=== PATIENT | female | born 1950 | race Caucasian/White ===

== ENCOUNTER 2018-07-03 14:30 | Outpatient (RCR) | payer MEDICARE, MEDICAID, SELFPAY ==
--- NOTE | 2018-05-19 14:18 | HMH.PTOPWND ---
Rehab Outpt Wound Evaluation Rehab OP Wound Evaluation Start: 05/19/18 14:05 Freq: Status: Active Protocol: Document 05/19/18 14:11 MADDIE (Rec: 05/19/18 14:18 PHORNE [id number]) Electronically Signed By Yefri Davis, PT 05/19/18 14:11 Subjective/History History History Pt is 67 yo white female who presents with several months of increased left LE edema and new onset left dorsal foot wound x ~ 1 wk per her report. She is wheelchair bound due to right AKA secondary to hx of PAD, DM with significant neuropathy, and osteomyelitis. SHe reports no c/o pain in the left LE today and swelling is at its usual level. She also has hx of CAD. Wound Eval Wound Left Dorsal Foot Wound Type Skin Tear Is This a Chronic Wound No Wound Length (cm) 0.6 Wound Width (cm) 1.4 Wound Bed Appearance Beefy Red Percentage Granulated (%) 100 Wound Margins Description Well Defined Surrounding Tissue Appearance [place] Edema Type Pitting Edema Degree 3+ Query Text:1+ Trace, Barely Detectable, Rebound 15-30 seconds 2+ Moderate, Slight Indentation, Rebound 10-20 seconds 3+ Deep, Deeper Indentation, Rebound > 30 seconds 4+ Very Deep, Rebound > 60 seconds Edema Appearance Shiny Puffy Drainage Description Serous Drainage Amount Small Primary Dressing Composite Lymphedema Eval Classification of Lymphedema Secondary Lymphedema Yes Stemmer's sign Stemmer's Sign no Stage of Lymphedema Lymphedema stages Stage I (Pitting edema, reduces w/ elevation, no fibrosis) Skin Changes Dry Skin Yes Taut, Shiny Skin Yes Redness Yes Wounds Yes Discoloration of Skin Yes Affected Extremities Areas Affected by Lymphedema/Edema Left Lower Extremity Manual Lymphatic Drainage Treatment Area MLD Treatment Area Left Lower Extremity Wound Problems/Impairments Impairments Problems/Impairmments Impaired Transfers Impaired Walking Impaired Standing Increased Edema
== END 2018-07-03 14:31 | disposition home or self-care (01) ==
LOC: PT 14:30
PROVIDERS: PCP Internal Medicine Adolescent Medicine; Visit Provider Internal Medicine Adolescent Medicine
DX: I89.0 Lymphedema, not elsewhere classified (principal)
CPT/HCPCS: 97140; 97162; 97760

== ENCOUNTER → 2019-04-29 10:26 | Outpatient (CLI) | payer MEDICARE, MEDICAID, SELFPAY ==
[2019-04-29 12:50] LABS: Anion Gap 15.2 mEq/L (5-15); Blood Urea Nitrogen 37 mg/dL (7-18); Calcium 8.3 mg/dL (8.5-10.1); Carbon Dioxide 24 mmol/L (21.0-32.0); Chloride 111 mmol/L (98-107); Creatinine,Serum 1.86 mg/dL (0.55-1.02); Estimated Glomerular Filt Rate 27 ml/min (>60); GFR (African American) 33 ML/MIN (>60); Glucose 100 mg/dL (74-106); Potassium 4.2 mmoL/L (3.5-5.1); Sodium 146 mmol/L (136-145)
== END ==
PROVIDERS: Visit Provider Internal Medicine Adolescent Medicine
DX: N18.9 Chronic kidney disease, unspecified (principal)
CPT/HCPCS: 36415; 80048

== ENCOUNTER → 2019-06-03 06:54 | Outpatient (CLI) | payer MEDICARE, MEDICAID, SELFPAY ==
--- NOTE | 2019-06-03 06:56 | NM_ITS ---
CARDIOLITE SPECT MYOCARDIAL PERFUSION LEXISCAN, REST AND STRESS: History: Coronary disease, obesity, hypertension, diabetes, hyperlipidemia, family history Procedure: Patient received a 0.4 mg of intravenous Lexiscan, resting heart rate was 54 bpm resting blood pressure 160/50, with Lexiscan maximum heart rate achieved was 70 beats prominent which is less than 85% of the maximum predicted heart rate and a blood pressure was 166/52. Lexiscan patient complained of shortness of breath Electrocardiogram: Resting electrocardiogram showed sinus bradycardia left bundle-branch block premature ventricular complex, with Lexiscan additional millimeters ST segment depression noted from the baseline EKG. The EKG portion of the Lexiscan Myoview is nondiagnostic due to baseline abnormal EKG. Cardiac stress and resting SPECT images: Cardiac stress and the suspect images were obtained using technetium 99 Myoview 32.6 mCi at stress and 10.2 mCi at rest. Gated SPECT further analysis of segmental wall motion and calculation of the ejection fraction also done. Cardiac stress and resting SPECT images show decreased tracer activity in the anteroseptal wall which improves on the resting images suggestive of reversible ischemia, computer derived ejection fraction is 44% with moderate septal wall hypokinesis. Right ventricle is normal size and contractility. Conclusion: 1. The EKG portion of the Lexiscan Myoview is nondiagnostic. 2. Scintigraphic evidence of reversible ischemia involving the anteroseptal and septal wall, there are ejection fraction 44% segmental wall motion abnormality described above, right ventricle is normal size and contractility. 3. Abnormal Lexiscan Myoview study.
--- NOTE | 2019-06-03 09:02 | HMH.ITSHM ---
Current Home Medications as stated by this patient Lillian Echols or sales solutions representative. []TRAMADOL PRAVASTATIN PANTOPRAZOLE NITRO NAPROXEN NALDEMEDINE MULTIVITAMIN METODOPRAMIDE LORATADINE LINCLOTIDE LEVOTHYROXINE ISOSORBIDE INSULIN GABAPENTIN BISOPROLOL ASA AMLODIPINE ALBUTEROL
== END ==
PROVIDERS: PCP Internal Medicine Adolescent Medicine; Visit Provider Physician Assistant
DX: I25.10 Atherosclerotic heart disease of native coronary artery without angina pectoris; E11.8 Type 2 diabetes mellitus with unspecified complications; E66.9 Obesity, unspecified; E78.2 Mixed hyperlipidemia; I44.7 Left bundle-branch block, unspecified; I73.9 Peripheral vascular disease, unspecified; N18.3 Chronic kidney disease, stage 3 (moderate); R94.31 Abnormal electrocardiogram [ECG] [EKG]; Z89.611 Acquired absence of right leg above knee; Z99.3 Dependence on wheelchair; Z79.4 Long term (current) use of insulin
CPT/HCPCS: 78452; 93017; A9502; J2785

== ENCOUNTER 2019-06-13 11:20 | Inpatient (IN) ==
--- NOTE | 2019-06-13 11:31 | Emergency Department Note ---
ED Disposition Clinical Impression: Pneumonia, CHF (congestive heart failure), Insulin dependent diabetes mellitus Disposition: Admitted As Inpatient Condition on Discharge: Fair Referrals: Ej Singh MD [Primary Care Provider] - Time of Disposition: 15:17 - Critical Care Critical Care Time: No Attestation: On , the high probability of a clinically significant, sudden or life threatening deterioration of the following system(s) required my full and direct attention, intervention and personal management. The time I documented below is in addition to time spent performing reported procedures but includes the following listed in this critical care notation. Medical Decision Making - Medical Records Medical records reviewed: Yes: I reviewed the patient's medical records. - Torin Inquiry Pt receiving controlled substance: No Torin was queried for this patient: No Vital Signs: 06/13/19 11:21 06/13/19 11:37 06/13/19 11:40 Temperature 98.8 F Temperature Source Oral Pulse Rate 128 H Pulse Rate [Left Radial] 116 H 130 H Respiratory Rate 22 Blood Pressure [Right Arm] 191/105 H 159/110 H Blood Pressure Mean [Right Arm] 133 126 Blood Pressure Source [Right Arm] Automatic Cuff Blood Pressure Position [Right Arm] Sitting Sitting 02 Sat by Pulse Oximetry 87 L 98 Oxygen Delivery Method Room Air Room Air Oxygen Flow Rate (LPM) 06/13/19 12:04 06/13/19 12:30 06/13/19 13:00 Temperature Temperature Source Pulse Rate Pulse Rate [Left Radial] 98 H 95 H 116 H Respiratory Rate Blood Pressure [Right Arm] 125/100 H 155/65 H 133/78 Blood Pressure Mean [Right Arm] 108 95 96 Blood Pressure Source [Right Arm] Automatic Cuff Automatic Cuff Blood Pressure Position [Right Arm] Sitting Supine Supine 02 Sat by Pulse Oximetry 99 100 98 Oxygen Delivery Method Nasal Cannula Nasal Cannula Room Air Oxygen Flow Rate (LPM) 2 2 06/13/19 13:09 06/13/19 14:00 06/13/19 14:30 Temperature 98.3 F Temperature Source Oral Pulse Rate Pulse Rate [Left Radial] 111 H 107 H 125 H Respiratory Rate 18 Blood Pressure [Right Arm] 138/49 L 143/87 H Blood Pressure Mean [Right Arm] 78 105 Blood Pressure Source [Right Arm] Automatic Cuff Automatic Cuff Blood Pressure Position [Right Arm] Sitting Supine 02 Sat by Pulse Oximetry 96 99 Oxygen Delivery Method Nasal Cannula Nasal Cannula Oxygen Flow Rate (LPM) 2 2 06/13/19 15:00 Temperature Temperature Source Pulse Rate Pulse Rate [Left Radial] 92 H Respiratory Rate Blood Pressure [Right Arm] 129/84 Blood Pressure Mean [Right Arm] 99 Blood Pressure Source [Right Arm] Automatic Cuff Blood Pressure Position [Right Arm] Supine 02 Sat by Pulse Oximetry 98 Oxygen Delivery Method Nasal Cannula Oxygen Flow Rate (LPM) 2 - Lab Data Lab results reviewed: Yes: I reviewed the patient's lab results. Lab Results 06/13/19 11:31: WBC 15.9 H, RBC 3.80 L, Hgb 10.0 L, Hct 31.5 L, MCV 82.9, MCH 26.3 L, MCHC 31.8, RDW 14.2, Plt Count 392, MPV 7.2 L, Neut % (Auto) 68.6, Lymph % (Auto) 17.9, [place] % (Auto) 7.0, Eos % (Auto) 6.0, Baso % (Auto) 0.5, Neut # (Auto) 10.9 H, Lymph # (Auto) 2.8, [place] # (Auto) 1.1 H, Eos # (Auto) 1.0 H, Baso # (Auto) 0.1, Total Counted 100, Neutrophils % (Manual) 70, Band Neutrophils % 1.0, Lymphocytes % (Manual) 14, Atypical Lymphs % 4.0, Monocytes % (Manual) 4, Eosinophils % (Manual) 7 H, Platelet Estimate Normal, RBC Morphology Normal 06/13/19 11:31: Sodium 141, Potassium 4.1, Chloride 107, Carbon Dioxide 23, Anion Gap 11.5, BUN 44 H, Creatinine 2.18 H, Estimated Creat Clear 45, Estimated GFR 22 L, Est GFR ( Amer) 27 L, Glucose 217 H, Calcium 8.9, Troponin I < 0.02 06/13/19 11:31: B-Natriuretic Peptide 1930 H 06/13/19 12:40: Urine Color Yellow, Urine Appearance Clear, Urine pH 6.0, Ur Specific [place] 1.020, Urine Protein 3+, Urine Glucose (UA) 1+, Urine Ketones Negative, Urine Blood 2+, Urine Nitrate Negative, Urine Bilirubin Negative, Urine Urobilinogen 0.2, Ur Leukocyte Esterase Negative, Urine RBC 5-10, Urine WBC 5-10, Ur Squamous Epith Cells Occasional, Urine Bacteria 3+ Result diagrams: 06/13/19 11:31 06/13/19 11:31 Orders (Tests/Meds): ED MEDICATIONS Discontinued Medications Generic Name Dose Route Start Last Admin Trade Name Leigha PRN Reason Stop Dose Admin Aspirin 243 mg 06/13/19 11:36 06/13/19 11:38 Aspirin 81mg Enteric Coated Tablet PO 06/13/19 11:37 243 mg ONCE ONE Administration Furosemide 20 mg 06/13/19 11:30 06/13/19 12:29 Lasix 20mg/2ml Vial IV 06/13/19 11:31 20 mg ONCE ONE Administration Nitroglycerin 1 gm 06/13/19 11:30 06/13/19 11:38 Nitroglycerin 1 Inch Oint Udp TD 06/13/19 11:31 1 gm ONCE ONE Administration ORDERS Category Date Time Status Lactic Acid Stat Lab 06/13/19 15:03 Received Blood Culture Stat Micro 06/13/19 15:03 Received Urine Culture Stat Micro 06/13/19 12:40 Received General Adult HPI - General Chief complaint: Chest Pain Stated complaint: chest pain Time Seen by Provider: 06/13/19 11:30 Mode of Arrival: Wheelchair Source of Information: Patient, Relative Limitations: Physical Limitations Description of Symptoms (Recalled from ER Triage Doc. by RN): to ed per pvt car with c/o pressure type chest pain with sob starting 2 days ago. pt denies any fever, cough, nausea, vomiting, radiation of pain or diaphoresis. pt states took 1 81mg as[employer]. swelling noted lt arm and lt leg. pt aka rt lower. - History of Present Illness HPI narrative: main complaint is dyspnea and palpitations. No true pain. 3+ pitting edema - Related Data Home Medications Medication Instructions Recorded Confirmed albuterol sulfate HFA 90 2 puff INHALATION Q6H PRN 04/13/18 06/13/19 mcg/actuation aerosol inhaler bisoprolol 10 1 tab PO DAILY tab 04/13/18 06/13/19 mg-hydrochlorothiazide 6.25 mg tablet insulin NPH-regular human 100 60 unit SUB-Q QPM 04/13/18 06/13/19 unit/mL (70-30) subcutaneous cartridge insulin lispro (U-100) 100 unit/mL 25 unit SUB-Q QAM ml 04/13/18 06/13/19 subcutaneous solution isosorbide mononitrate ER 60 mg 60 mg PO QAM 04/13/18 06/13/19 tablet,extended release 24 hr levothyroxine 100 mcg tablet 100 mcg PO DAILY tab 04/13/18 06/13/19 linaclotide 72 mcg capsule 72 mcg PO .3 times a week cap 04/13/18 06/13/19 lisinopril 10 mg tablet 10 mg PO DAILY tab 04/13/18 06/13/19 loratadine 10 mg tablet 10 mg PO DAILY tab 04/13/18 06/13/19 metoclopramide 10 mg tablet 10 mg PO Q6H 04/13/18 06/13/19 naproxen 500 mg tablet 500 mg PO BID 04/13/18 06/13/19 nitroglycerin 0.4 mg sublingual 0.4 mg SUBLINGUAL Q5M PRN 04/13/18 06/13/19 tablet pantoprazole 40 mg tablet,delayed 40 mg PO DAILY tab 04/13/18 06/13/19 release pravastatin 40 mg tablet 40 mg PO QHS 04/13/18 06/13/19 tramadol 50 mg tablet 50 mg PO Q6H 04/13/18 06/13/19 aspirin 81 mg tablet,delayed 81 mg PO DAILY 10/27/18 06/13/19 release gabapentin 300 mg capsule 300 mg PO DAILY cap 10/27/18 06/13/19 ibuprofen 200 mg tablet 400 mg PO QID PRN tab 10/27/18 06/13/19 multivitamin tablet 1 tab PO DAILY 10/27/18 06/13/19 naldemedine 0.2 mg tablet 0.2 mg PO DAILY 10/27/18 06/13/19 Amlodipine Besylate [Amlodipine 10 mg PO DAILY 06/13/19 06/13/19 10mg Tab] Allergies Allergy/AdvReac Type Severity Reaction Status Date / Time Iodinated Contrast Media - Allergy Severe S-SWELLS-OR Verified 06/08/19 14:46 Oral and AL/THROAT [Iodinated Contrast Media - IV Dye] Penicillins Allergy Severe I-HIVES Verified 06/08/19 14:46 clindamycin Allergy Intermediate "SHUTS Verified 06/08/19 14:46 DOWN KIDNEYS" [facility] History - Hepatitis A Screen Drug use history?: No High risk sexual behaviors?: No History of sexually transmitted infection?: No Currently employed?: No Childcare worker?: No Do you have indoor plumbing?: Yes Do you have electricity?: Yes Attestation statement:: This patient has been screened for Hepatitis A risk factors. I have reviewed the patient's past medical history: Yes Medical History: Reports:: Coronary Artery Disease, Diabetes Mellitus Type 2, Hyperlipidemia, Hypertension, Peripheral Artery Disease, Renal Disease Denies:: Cancer, Diabetes Mellitus Type 1, Internal Pacemaker, MRSA, Seizures Other Surgeries: Yes: Hysterectomy-Total. No: Pacemaker Amputation: Yes Fractures: No - Social History Smoking Status: Former smoker Alcohol Intake: never Substance Use Type: denies use Occupational Status: retired Housing: house Household Members: spouse, family Comment: CHF ROS Obtained: Yes All systems reviewed & no additional complaints - Constitutional Constitutional: Denies chills, Reports weakness - Cardiovascular Cardiovascular: Denies chest pain, Reports dyspnea on exertion, Reports shortness of breath when lying down, Reports palpitations, Reports pedal edema - Respiratory Respiratory: Yes chest congestion, Yes dyspnea, Yes dyspnea on exertion - Gastrointestinal Gastrointestingal: Denies: abdominal pain - Musculoskeletal Musculoskeletal: Denies joint pain, Denies joint stiffness, Denies joint swelling - Integumentary/Breasts Skin/Breast: Denies rash, Denies skin pain, Denies skin ulcer, Denies sores, Reports skin swelling - Neurologic Neurologic: Denies headache(s), Denies memory loss, Denies tingling/numbness/burning sensations, Denies sensory deficit, Denies syncope - Hematologic/Lymphatic Henatologic/Lymphatic: Denies easy bleeding, Denies easy bruising Physical Exam - General General appearance: alert, in distress - Head Head exam: atraumatic, normocephalic, normal inspection - Eye Eye exam: Present: normal appearance, PERRL, EOMI - ENT ENT exam: Present: normal exam, normal oropharynx, mucous membranes moist, TM's normal bilaterally, normal external ear exam - Neck Neck exam: Present: normal inspection - Respiratory Respiratory exam: Present: respiratory distress (mild), wheezes, other (scattered rhonchi). Absent: normal lung sounds bilaterally - Cardiovascular Cardiovascular exam: Present: tachycardia, irregular rhythm - Abdominal Exam Abdominal exam: Present: soft. Absent: distention, tenderness - Extremities Exam Extremities exam: Present: pedal edema - Neurological Exam Neurological exam: Present: alert, oriented X3, CN II-XII intact, motor sensory deficit - Psychiatric Psychiatric exam: Present: normal affect - Skin Skin exam: Present: warm, dry, intact, normal color
[2019-06-13 11:40] LABS: Basophils # 0.1 K/mm3 (0-0.2); Basophils % 0.5 % (0.1-2.0); Hematocrit 31.5 % (37.0-47.0); Lymphocytes # 2.8 K/mm3 (0.7-4.5); Lymphocytes % 17.9 % (10-50); Mean Corpuscular HGB Conc 31.8 g/dL (31.8-35.4); Mean Corpuscular Volume 82.9 fl (81-99); Mean Platelet Volume 7.2 fl (7.4-10.4); Monocytes # 1.1 K/mm3 (0.1-1.0); Neutrophils # 10.9 K/mm3 (1.8-7.8); Neutrophils % 68.6 % (37.0-80.0); Platelet Count 392 K/mm3 (142-424); Red Cell Distribution Width 14.2 % (11.5-17.5); White Blood Count 15.9 K/mm3 (4.8-10.8)
[2019-06-13 11:49] LABS: Anion Gap 11.5 mEq/L (5-15); Blood Urea Nitrogen 44 mg/dL (7-18); Carbon Dioxide 23 mmol/L (21.0-32.0); Chloride 107 mmol/L (98-107); Sodium 141 mmol/L (136-145)
[2019-06-13 11:50] LABS: Calcium 8.9 mg/dL (8.5-10.1); Glucose 217 mg/dL (74-106)
[2019-06-13 11:53] LABS: Eosinophils % 7 % (0-3); Lymphocytes % 14 % (10-50); Monocytes % 4 % (2-9); Neutrophils % 70 % (42-76); RBC Morphology Normal; Total Cells Counted 100
[2019-06-13 13:16] LABS: Appearance,Urine CLEAR (Clear); Bilirubin,Urine Negative (Negative); Blood, Urine 2+ (Negative); Color,Urine YELLOW (Yellow); Glucose,Urine (UA) 1+ (Negative); Ketones,Urine Negative (Negative); Leukocyte Esterase,Urine Negative (Negative); Microscopic, Urine URINE MICROSCOPIC (MICROSCOPIC); Protein,Urine 3+ (Negative); Urobilinogen,Urine 0.2 EU/dl (0.2)
[2019-06-13 13:22] LABS: Bacteria,Urine 3+ /lpf; Squamous Epithelial Cell,Urine Occasional #/hpf (0-5)
--- NOTE | 2019-06-14 08:42 | History & Physical Report ---
*Admission Date: 06/13/19 *Chief complaint: Chest pain/shortness of air *History of present illness: 68-year-old white female with long history of diabetes-insulin requiring, history of osteomyelitis/leg cellulitis with right AKA, history of diastolic CHF, who came to the emergency department with chest pain, dyspnea and shortness of air. In the emergency department infiltrate noted on chest x-ray but very suspicious in character, CT scan confirmed that this appears to be a significant right upper lobe pneumonic infiltrate, and given her chest pain and shortness of air and possible CHF exacerbation when she was admitted to the hospital. This morning she states she feels somewhat better. [facility] History I have reviewed the patient's past medical history: Yes Medical History: Reports:: Congestive Heart Failure, Coronary Artery Disease, D iabetes Mellitus Type 2, Hyperlipidemia, Hypertension, Peripheral Artery Disease, Renal Disease Denies:: Cancer, Diabetes Mellitus Type 1, Internal Pacemaker, MRSA, Seizures *Have you ever received a pneumonia vaccine?: Yes *Have you received a flu vaccine this season?: Yes Other Medical History: Reports: Arthritis Laterality Cases: Right: Other Other Surgeries: Yes: Cholecystectomy, Hysterectomy-Total. No: Pacemaker Amputation: Yes Fractures: No - *Social History Educational Level: Attended College Smoking Status: Former smoker Alcohol Intake: current Alcohol Intake Frequency:: holidays/special occasions only Substance Use Type: denies use *Occupational Status:: retired Housing: house Household Members: spouse, family, children *Travel in the last 8 weeks: None - Psychiatric History Expresses thoughts of harming self/others: None Family Hx:: No significant family history Review of Systems - Review of Systems Review of systems:: pertinent systems reviewed and negative unless documented below Respiratory symptoms noted above. No sputum production or cough. Shortness of air is exertional and at rest. Chest pain negative for palpitations. - *Neurologic Reports weakness, Denies headache(s), Denies memory loss, Denies tingling/numbness/burning sensations, Denies sensory deficit, Denies fainting Meds Home Medications Medication Instructions Recorded Confirmed Type albuterol sulfate HFA 90 2 puff INHALATION Q6H PRN 04/13/18 06/13/19 History mcg/actuation aerosol inhaler bisoprolol 10 1 tab PO BID tab 04/13/18 06/13/19 History mg-hydrochlorothiazide 6.25 mg tablet insulin NPH-regular human 100 1 unit SUB-Q QPM 04/13/18 06/13/19 History unit/mL (70-30) subcutaneous cartridge insulin lispro (U-100) 100 unit/mL 20 unit SUB-Q BID ml 04/13/18 06/13/19 History subcutaneous solution isosorbide mononitrate ER 60 mg 60 mg PO QAM 04/13/18 06/13/19 History tablet,extended release 24 hr levothyroxine 100 mcg tablet 100 mcg PO DAILY tab 04/13/18 06/13/19 History linaclotide 72 mcg capsule 145 mcg PO DAILY cap 04/13/18 06/13/19 History lisinopril 10 mg tablet 10 mg PO DAILY tab 04/13/18 06/13/19 History loratadine 10 mg tablet 10 mg PO DAILY tab 04/13/18 06/13/19 History metoclopramide 10 mg tablet 10 mg PO DAILY 04/13/18 06/13/19 History naproxen 500 mg tablet 500 mg PO HS 04/13/18 06/13/19 History nitroglycerin 0.4 mg sublingual 0.4 mg SUBLINGUAL Q5M PRN 04/13/18 06/13/19 History tablet pantoprazole 40 mg tablet,delayed 40 mg PO DAILY tab 04/13/18 06/13/19 History release pravastatin 40 mg tablet 40 mg PO QHS 04/13/18 06/13/19 History tramadol 50 mg tablet 100 mg PO HS 04/13/18 06/13/19 History aspirin 81 mg tablet,delayed 81 mg PO DAILY 10/27/18 06/13/19 History release gabapentin 300 mg capsule 300 mg PO DAILY cap 10/27/18 06/13/19 History ibuprofen 200 mg tablet 400 mg PO HS tab 10/27/18 06/13/19 History multivitamin tablet 1 tab PO DAILY 10/27/18 06/13/19 History naldemedine 0.2 mg tablet 0.2 mg PO DAILY 10/27/18 06/13/19 History Amlodipine Besylate [Amlodipine 10 mg PO DAILY 06/13/19 06/13/19 History 10mg Tab] Lisinopril [Lisinopril 10mg Tab] 10 mg PO DAILY 06/13/19 06/13/19 History hydroCHLOROthiazide 25 mg PO DAILY 06/13/19 06/13/19 History [Hydrochlorothiazide 12.5mg Tab] Allergies Allergy/AdvReac Type Severity Reaction Status Date / Time Iodinated Contrast Media - Allergy Severe S-SWELLS-OR Verified 06/08/19 14:46 Oral and AL/THROAT [Iodinated Contrast Media - IV Dye] Penicillins Allergy Severe I-HIVES Verified 06/08/19 14:46 clindamycin Allergy Intermediate "SHUTS Verified 06/08/19 14:46 DOWN KIDNEYS" Exam Vital signs and Labs for Last 24 Hours: Temp Pulse Resp BP Pulse Ox 98.6 F 79 20 180/74 H 96 06/14/19 06:35 06/14/19 06:35 06/14/19 06:35 06/14/19 06:35 06/14/19 08:00 Laboratory Results - last 24 hr 06/13/19 11:31: WBC 15.9 H, RBC 3.80 L, Hgb 10.0 L, Hct 31.5 L, MCV 82.9, MCH 26.3 L, MCHC 31.8, RDW 14.2, Plt Count 392, MPV 7.2 L, Neut % (Auto) 68.6, Lymph % (Auto) 17.9, [place] % (Auto) 7.0, Eos % (Auto) 6.0, Baso % (Auto) 0.5, Neut # (Auto) 10.9 H, Lymph # (Auto) 2.8, [place] # (Auto) 1.1 H, Eos # (Auto) 1.0 H, Baso # (Auto) 0.1, Total Counted 100, Neutrophils % (Manual) 70, Band Neutrophils % 1.0, Lymphocytes % (Manual) 14, Atypical Lymphs % 4.0, Monocytes % (Manual) 4, Eosinophils % (Manual) 7 H, Platelet Estimate Normal, RBC Morphology Normal 06/13/19 11:31: Sodium 141, Potassium 4.1, Chloride 107, Carbon Dioxide 23, Anion Gap 11.5, BUN 44 H, Creatinine 2.18 H, Estimated Creat Clear 45, Estimated GFR 22 L, Est GFR ( Amer) 27 L, Glucose 217 H, Calcium 8.9, Troponin I < 0.02 06/13/19 11:31: B-Natriuretic Peptide 1930 H 06/13/19 12:40: Urine Color Yellow, Urine Appearance Clear, Urine pH 6.0, Ur Specific [place] 1.020, Urine Protein 3+, Urine Glucose (UA) 1+, Urine Ketones Negative, Urine Blood 2+, Urine Nitrate Negative, Urine Bilirubin Negative, Urine Urobilinogen 0.2, Ur Leukocyte Esterase Negative, Urine RBC 5-10, Urine WBC 5-10, Ur Squamous Epith Cells Occasional, Urine Bacteria 3+ 06/13/19 15:03: Lactate 0.7 06/13/19 15:03: Troponin I < 0.02 06/13/19 18:45: Troponin I < 0.02 06/13/19 20:50: Troponin I < 0.02 06/13/19 21:38: POC Glucose 229 H 06/14/19 05:56: POC Glucose 208 H I & O for Last 24 hours: Intake & Output 06/11/19 06/12/19 06/13/19 06/14/19 11:59 11:59 11:59 11:59 Intake Total 1584 / 1584 Output Total 3600 / 3600 Balance -2015 / -2015 Weight 259 lb 225 lb 7 oz Narrative: Patient is pleasant, talkative. Heart rate on environmental monitoring technician in sinus bradycardia but with multiple PVCs. Lungs have rhonchi and crackles in the right base. Upper lobes are actually clear. Heart rate regular with occasional ectopic beats. Abdomen soft and nontender. Left ankle is edematous with 2+ pitting edema at her sock line. Right side stump looks clear. Neurologic exam nonfocal and her cranial nerves and upper extremities. Assessment and Plan (1) Paroxysmal atrial fibrillation Current visit: Yes Status: Acute Category: Medical Code(s): I48.0 - Paroxysmal atrial fibrillation One episode last night, before Cardizem that was ordered was given patient transition back in a sinus rhythm. Check echocardiogram today and watch carefully. (2) CHF (congestive heart failure) Current visit: Yes Status: Acute Category: Medical Code(s): I50.9 - Heart failure, unspecified Patient responded fairly well to diuresis. 1 more dose of Lasix today. Check echocardiogram. (3) Insulin dependent diabetes mellitus Current visit: Yes Status: Acute Category: Medical Code(s): E11.9 - Type 2 diabetes mellitus without complications; Z79.4 - FDC (current) use of insulin Continue current therapy. Complicates all aspects of her care (4) Pneumonia Current visit: Yes Status: Acute Category: Medical Code(s): J18.9 - Pneumonia, unspecified organism Continue antibiotics as ordered. Close observation (5) Obesity Current visit: No Status: Acute Qualifiers: Category: Medical Code(s): E66.9 - Obesity, unspecified Complicates all aspects of her care
[2019-06-14 09:13] LABS: Basophils # 0.2 K/mm3 (0-0.2); Basophils % 0.7 % (0.1-2.0); Eosinophils # 1.1 K/mm3 (0.0-0.4); Eosinophils % 4.5 % (0.1-12.0); Hematocrit 33.2 % (37.0-47.0); Hemoglobin 10.4 g/dL (12.2-16.2); Lymphocytes % 20.9 % (10-50); Mean Corpuscular HGB Conc 31.4 g/dL (31.8-35.4); Mean Corpuscular Volume 83.7 fl (81-99); Mean Platelet Volume 7.5 fl (7.4-10.4); Monocytes # 1.6 K/mm3 (0.1-1.0); Monocytes % 6.7 % (1.7-9.3); Neutrophils # 16.2 K/mm3 (1.8-7.8); Neutrophils % 67.2 % (37.0-80.0); Platelet Count 465 K/mm3 (142-424); Red Blood Count 3.97 M/mm3 (4.20-5.40); Red Cell Distribution Width 14.5 % (11.5-17.5); White Blood Count 24.1 K/mm3 (4.8-10.8)
--- NOTE | 2019-06-14 09:17 | Pharmacy Consult Notes ---
[facility] VTE Monitoring - Patient Demographics Admission date: 06/14/19 Report Date: 06/14/19 Time: 09:16 Allergies/Adverse Reactions: Patient Allergies Iodinated Contrast Media - Oral and [Iodinated Contrast Media - IV Dye] Allergy (Severe, Verified 06/08/19 14:46) [id number]/THROAT Penicillins Allergy (Severe, Verified 06/08/19 14:46) I-HIVES clindamycin Allergy (Intermediate, Verified 06/08/19 14:46) "SHUTS DOWN KIDNEYS" Height: 1.7 m Weight: 102.257 kg Patient Problems: Current Active Problems (Updated 06/14/19 @ 08:42 by Ej Singh MD) Pneumonia (Acute) CHF (congestive heart failure) (Acute) Insulin dependent diabetes mellitus (Acute) Paroxysmal atrial fibrillation (Acute) - VTE Risk Labs: VTE Related Lab Results Hgb 10.4 g/dL (12.2-16.2) L 06/14/19 08:55 Hct 33.2 % (37.0-47.0) L 06/14/19 08:55 Plt Count 465 K/mm3 (142-424) H 06/14/19 08:55 BUN 44 mg/dL (7-18) H 06/13/19 11:31 Creatinine 2.18 mg/dL (0.55-1.02) H 06/13/19 11:31 Estimated Creat Clear 45 mL/min (50-200) 06/13/19 11:31 Was VTE Risk Assessment Performed: Yes VTE Score: 7 VTE Risk Level: Moderate Risk Clinical Trial Participant: No - Prophylaxis VTE Prophylaxis Ordered?: Yes Types of VTE Prophylaxis: TEDS Knee High, Pharmacological Pharmacologic Type: Enoxaparin
[2019-06-14 09:24] LABS: Albumin Level 2.4 gm/dL (3.4-5.0); Albumin/Globulin Ratio 0.6 (1.1-1.8); Anion Gap 14.6 mEq/L (5-15); Bilirubin,Total 0.4 mg/dL (0.2-1.0); Calcium 8.9 mg/dL (8.5-10.1); Globulin 3.9 gm/dl (1.3-3.2); Total Protein,Serum 6.3 gm/dL (6.4-8.2)
[2019-06-14 09:41] LABS: Eosinophils % 5 % (0-3); Lymphocytes % 24 % (10-50); Monocytes % 5 % (2-9); Neutrophils % 66 % (42-76); RBC Morphology Normal; Total Cells Counted 100
--- NOTE | 2019-06-14 14:24 | Consult Report ---
History of Present Illness Consult date: 06/14/19 Requesting physician: Ej Singh Consult reason: shortness of breath Chief complaint: SOB and chest pain Additional Medical History:: 1. Coronary artery disease 2. Hypertension 3. Hyperlipidemia 4. Diabetes 5. Diastolic congestive heart failure 6. Chronic kidney disease 7. Peripheral arterial disease History of present illness: This is a 68-year-old white female who was admitted to the hospital with chest pain and shortness of breath. The patient states that she has been severely short of breath over the last several days. This is been associated with edema in her left leg. She states that she has been having a lot of pain with inspiration as well. She states that this is an aching pressure sensation in her chest that she only notices with breathing or deep breaths. She denies any fevers or chills. She denies any nausea, vomiting or diarrhea. Of note, the patient did have a left heart cath on last week. The patient had mild nonocclusive coronary artery disease at that time. Upon admission to the hospital here, the patient was found to have a right upper lobe pneumonia and is being treated by her primary care provider for this. She is also being treated for an exacerbation of her diastolic congestive heart failure. This afternoon she does report that she feels much better today than she did on admission. She states her shortness of breath is much better. She still complaining of edema in her left leg. She denies any chest pain or pressure today. [facility] History I have reviewed the patient's past medical history: Yes Medical History: Reports:: Congestive Heart Failure, Coronary Artery Disease, Diabetes Mellitus Type 2, Hyperlipidemia, Hypertension, Peripheral Artery Disease, Renal Disease Denies:: Cancer, Diabetes Mellitus Type 1, Internal Pacemaker, MRSA, Seizures *Have you ever received a pneumonia vaccine?: Yes *Have you received a flu vaccine this season?: Yes Other Medical History: Reports: Arthritis Laterality Cases: Right: Other Other Surgeries: Yes: Cholecystectomy, Hysterectomy-Total. No: Pacemaker Amputation: Yes Fractures: No - *Social History Educational Level: Attended College Smoking Status: Former smoker Alcohol Intake: current Alcohol Intake Frequency:: holidays/special occasions only Substance Use Type: denies use *Occupational Status:: retired Housing: house Household Members: spouse, family, children *Travel in the last 8 weeks: None - Psychiatric History Expresses thoughts of harming self/others: None Family Hx:: No significant family history Meds Home Medications Medication Instructions Recorded Confirmed Type albuterol sulfate HFA 90 2 puff INHALATION Q6H PRN 04/13/18 06/13/19 History mcg/actuation aerosol inhaler isosorbide mononitrate ER 60 mg 60 mg PO BID 04/13/18 06/14/19 History tablet,extended release 24 hr levothyroxine 100 mcg tablet 100 mcg PO DAILY tab 04/13/18 06/13/19 History loratadine 10 mg tablet 10 mg PO DAILY tab 04/13/18 06/13/19 History metoclopramide 10 mg tablet 10 mg PO ACHS 04/13/18 06/14/19 History naproxen 500 mg tablet 500 mg PO BID 04/13/18 06/14/19 History nitroglycerin 0.4 mg sublingual 0.4 mg SUBLINGUAL Q5M PRN 04/13/18 06/13/19 History tablet pantoprazole 40 mg tablet,delayed 40 mg PO DAILY tab 04/13/18 06/13/19 History release tramadol 50 mg tablet 100 mg PO Q4HP PRN 04/13/18 06/14/19 History aspirin 81 mg tablet,delayed 81 mg PO DAILY 10/27/18 06/13/19 History release gabapentin 300 mg capsule 300 mg PO HS cap 10/27/18 06/14/19 History ibuprofen 200 mg tablet 400 mg PO HS tab 10/27/18 06/13/19 History multivitamin tablet 1 tab PO DAILY 10/27/18 06/13/19 History Amlodipine Besylate [Amlodipine 10 mg PO DAILY 06/13/19 06/13/19 History 10mg Tab] Lisinopril [Lisinopril 10mg Tab] 10 mg PO DAILY 06/13/19 06/13/19 History Atorvastatin Calcium [Atorvastatin 40 mg PO HS 06/14/19 06/14/19 History 40mg Tab] Bisoprolol Fumarate [Bisoprolol 10 mg PO BID 06/14/19 06/14/19 History 10mg Tablet] Insulin NPH Hum/Reg Insulin Hm 5 unit SQ DAILY 06/14/19 06/14/19 History [Humulin 70/30 Kwikpen] Insulin NPH Hum/Reg Insulin Hm 5 unit SQ HS 06/14/19 06/14/19 History [Humulin 70/30 Kwikpen] Linaclotide [Linzess] 145 mcg PO DAILY 06/14/19 06/14/19 History Allergies Allergy/AdvReac Type Severity Reaction Status Date / Time Iodinated Contrast Media - Allergy Severe S-SWELLS-OR Verified 06/08/19 14:46 Oral and AL/THROAT [Iodinated Contrast Media - IV Dye] Penicillins Allergy Severe I-HIVES Verified 06/08/19 14:46 clindamycin Allergy Intermediate "SHUTS Verified 06/08/19 14:46 DOWN KIDNEYS" Review of Systems - Review of Systems Review of systems:: pertinent systems reviewed and negative unless documented below - *Cardiovascular Reports chest pain, Reports chest pain at rest, Reports chest pain with activity, Reports shortness of breath, Reports shortness of breath with activity, Reports leg swelling (Left lower extremity) - *Respiratory Reports cough, Reports shortness of breath, Reports shortness of breath with activity, Reports pain on inspiration - *Neurologic Reports weakness, Denies headache(s), Denies memory loss, Denies tingling/numbness/burning sensations, Denies sensory deficit, Denies fainting Exam Vital signs and Labs for Last 24 Hours: Temp Pulse Resp BP Pulse Ox 98.3 F 66 22 151/82 H 97 06/14/19 12:00 06/14/19 14:08 06/14/19 12:00 06/14/19 13:16 06/14/19 12:00 Laboratory Results - last 24 hr 06/13/19 15:03: Lactate 0.7 06/13/19 15:03: Troponin I < 0.02 06/13/19 18:45: Troponin I < 0.02 06/13/19 20:50: Troponin I < 0.02 06/13/19 21:38: POC Glucose 229 H 06/14/19 05:56: POC Glucose 208 H 06/14/19 08:55: WBC 24.1 H* D, RBC 3.97 L, Hgb 10.4 L, Hct 33.2 L, MCV 83.7, MCH 26.2 L, MCHC 31.4 L, RDW 14.5, Plt Count 465 H, MPV 7.5, Neut % (Auto) 67.2, Lymph % (Auto) 20.9, [place] % (Auto) 6.7, Eos % (Auto) 4.5, Baso % (Auto) 0.7, Neut # (Auto) 16.2 H, Lymph # (Auto) 5.0 H, [place] # (Auto) 1.6 H, Eos # (Auto) 1.1 H, Baso # (Auto) 0.2, Total Counted 100, Neutrophils % (Manual) 66, Lymphocytes % (Manual) 24, Monocytes % (Manual) 5, Eosinophils % (Manual) 5 H, Platelet Estimate Slight increase, RBC Morphology Normal 06/14/19 08:55: Sodium 143, Potassium 3.6, Chloride 108 H, Carbon Dioxide 24, Anion Gap 14.6, BUN 40 H, Creatinine 2.22 H, Estimated Creat Clear 39, Estimated GFR 22 L, Est GFR ( Amer) 26 L, Glucose 189 H, Calcium 8.9, Total Bilirubin 0.4, AST 19, ALT 25, Alkaline Phosphatase 76, Total Protein 6.3 L, Albumin 2.4 L, Globulin 3.9 H, Albumin/Globulin Ratio 0.6 L 06/14/19 08:55: Magnesium 1.7 06/14/19 11:18: POC Glucose 201 H I & O for Last 24 hours: Intake & Output 06/11/19 06/12/19 06/13/19 06/14/19 23:59 23:59 23:59 23:59 Intake Total 640 / 640 944 / 944 Output Total 850 / 850 3550 / 3550 Balance -210 / -210 -2606 / -2606 Weight 225 lb 7 oz 224 lb 8 oz Microbiology Reports for the Last 24 Hours: Microbiology 06/13/19 12:40 Urine,Catheterized Urine Culture - Preliminary NO GROWTH AFTER 24 HOURS Narrative: EKG #1 is atrial fibrillation with RVR and left bundle branch block. EKG #2 is sinus rhythm with left bundle branch block. - *Routine HEENT Exam Head: Present: normocephalic, atraumatic Eye: Present: EOMI, PERRL ENT: Present: mucous membranes moist - *Routine Neck Exam Present: supple, full ROM, normal carotid upstroke. Absent: JVD, carotid bruit, lymphadenopathy - *Routine Respiratory Exam Present: decreased breath sounds, rhonchi (Right upper lobe), wheezes (Right upper lobe) - *Routine Cardiovascular Exam Present: RRR, Normal S1, Normal S2. Absent: murmur - *Routine Abdominal Exam Present: soft, normoactive bowel sounds. Absent: tenderness - *Routine Extremities Exam Present: edema (2+ edema in the left lower extremity; she is a right [id number] amputee), full ROM, pulses intact (Left lower extremity pulses intact; she has a right [id number] amputee). Absent: cyanosis, clubbing - *Routine Skin Exam Present: intact, warm. Absent: erythema, rash - *Routine Neurological Exam Present: alert, oriented X3, CN II-XII intact. Absent: sensory deficit, motor deficit - Routine Psychiatric Exam Present: normal affect, normal thought process - Detailed Eye Exam Eyelids: Left normal inspection Assessment and Plan (1) Paroxysmal atrial fibrillation Current visit: Yes Status: Acute Category: Medical Code(s): I48.0 - Paroxysmal atrial fibrillation (2) Pneumonia Current visit: Yes Status: Acute Category: Medical Code(s): J18.9 - Pneumonia, unspecified organism (3) Acute on chronic diastolic (congestive) heart failure Current visit: Yes Status: Acute Category: Medical Code(s): I50.33 - Acute on chronic diastolic (congestive) heart failure (4) Shortness of breath Current visit: Yes Status: Acute Category: Medical Code(s): R06.02 - Shortness of breath (5) Edema Current visit: Yes Status: Acute Category: Medical Code(s): R60.9 - Edema, unspecified (6) CAD (coronary artery disease) Current visit: No Status: Chronic Qualifiers: Coronary Disease-Associated Artery/Lesion type: [place] artery [place] vs. transplanted heart: [place] heart Associated angina: without angina Qualified Code(s): I25.10 - Atherosclerotic heart disease of [place] coronary artery without angina pectoris Category: Medical Code(s): I25.10 - Atherosclerotic heart disease of [place] coronary artery without angina pectoris (7) HTN (hypertension) Current visit: No Status: Chronic Qualifiers: Hypertension type: essential hypertension Qualified Code(s): I10 - Essential (primary) hypertension Category: Medical Code(s): I10 - Essential (primary) hypertension (8) HLD (hyperlipidemia) Current visit: No Status: Chronic Qualifiers: Hyperlipidemia type: mixed hyperlipidemia Qualified Code(s): E78.2 - Mixed hyperlipidemia Category: Medical Code(s): E78.5 - Hyperlipidemia, unspecified (9) Left bundle branch block Current visit: No Status: Chronic Category: Medical Code(s): I44.7 - Left bundle-branch block, unspecified (10) Obesity Current visit: No Status: Acute Qualifiers: Category: Medical Code(s): E66.9 - Obesity, unspecified (11) Above knee amputation of right lower extremity Current visit: No Status: Chronic Category: Surgical Code(s): Z89.611 - Acquired absence of right leg above knee (12) Diabetes mellitus Current visit: No Status: Chronic Qualifiers: Diabetes mellitus type: type 2 Diabetes mellitus buttermaker helper insulin use: unspecified nursing home insulin use status Diabetes mellitus complication status: with unspecified complications Category: Medical Code(s): E11.9 - Type 2 diabetes mellitus without complications (13) PAD (peripheral artery disease) Current visit: No Status: Chronic Category: Medical Code(s): I73.9 - Peripheral vascular disease, unspecified (14) Cardiomyopathy Current visit: Yes Status: Chronic Category: Medical Code(s): I42.9 - Cardiomyopathy, unspecified - Assessment and plan all Dx Assessment and Plan for all problems:: Plan: 1. The patient was admitted with shortness of breath and chest pain with inspiration. The patient was found to have right upper lobe pneumonia upon ad mission to the hospital. She is currently being treated for her pneumonia by her primary care provider. Will defer. 2. The patient does have a history of diastolic congestive heart failure. She likely is having an exacerbation of her diastolic congestive heart failure. She is getting IV Lasix. We will continue her IV Lasix at 40 mg twice daily. We do not want to treat her diastolic congestive heart failure to aggressively at this point as most of her symptoms are likely coming from her pneumonia. 3. The patient did have an echocardiogram today. This is going to be read by Dr. HONG this afternoon. 4. Stop her IV fluids secondary to her presumed acute on chronic diastolic congestive heart failure exacerbation per Dr. HONG. 5. The patient did have an episode of paroxysmal atrial fibrillation. Diltiazem was ordered but never given. The patient is not a candidate for diltiazem due to her cardiomyopathy. She has an ejection fraction of 40% and with an ejection fraction that low diltiazem is not a good option for her. We will discontinue her diltiazem per Dr. HONG. We will also discontinue her Norvasc as well due to her cardiomyopathy per Dr. HONG. 6. Stop her bisoprolol and put her on metoprolol 50 mg p.o. twice daily for suppression of her atrial ectopy per Dr. HONG. 7. Due to her cardiomyopathy and diastolic congestive heart failure, we will start her on hydralazine 25 mg p.o. every [address] HONG. Continue her isosorbide. 8. BMP in the morning. 9. The patient does have coronary artery disease. She did undergo left cardiac catheterization last . She was found to have mild nonocclusive coronary artery disease. 10. Her blood pressure is elevated. The addition of hydralazine and metoprolol should help to improve her blood pressure. 11. Her LDL goal is less than 55. 12. The patient does have a history of PAD which is currently stable. 13. She does have some edema in her left lower extremity. She is a right [id number] amputee. Stopping the calcium channel blockers will likely help to improve her left lower extremity edema as well as the Lasix. 14. She does have diabetes. The patient needs aggressive control of her diabetes. This is being deferred to her primary care provider. 15. Further recommendations will be made pending the patient's response to treatment and the results of his echocardiogram later today. Thank you for the opportunity to help participate in care of this patient.
[2019-06-14 19:54] LABS: Albumin Level 2.2 gm/dL (3.4-5.0); Albumin/Globulin Ratio 0.6 (1.1-1.8); Anion Gap 15.7 mEq/L (5-15); Bilirubin,Total 0.3 mg/dL (0.2-1.0); Calcium 8.7 mg/dL (8.5-10.1); Globulin 3.8 gm/dl (1.3-3.2); Phosphorous 3.3 mg/dL (2.4-4.9)
[2019-06-15 06:19] LABS: Anion Gap 16.4 mEq/L (5-15); Calcium 8.7 mg/dL (8.5-10.1)
[2019-06-15 06:34] LABS: Basophils # 0.1 K/mm3 (0-0.2); Basophils % 0.5 % (0.1-2.0); Eosinophils # 0.4 K/mm3 (0.0-0.4); Eosinophils % 2.1 % (0.1-12.0); Hematocrit 32.6 % (37.0-47.0); Lymphocytes # 2.6 K/mm3 (0.7-4.5); Lymphocytes % 15.6 % (10-50); Mean Corpuscular HGB Conc 30.7 g/dL (31.8-35.4); Mean Corpuscular Volume 83.4 fl (81-99); Mean Platelet Volume 7.6 fl (7.4-10.4); Monocytes # 0.9 K/mm3 (0.1-1.0); Monocytes % 5.2 % (1.7-9.3); Neutrophils # 12.7 K/mm3 (1.8-7.8); Neutrophils % 76.6 % (37.0-80.0); Platelet Count 364 K/mm3 (142-424); Red Blood Count 3.91 M/mm3 (4.20-5.40); Red Cell Distribution Width 14.7 % (11.5-17.5); White Blood Count 16.6 K/mm3 (4.8-10.8)
--- NOTE | 2019-06-15 09:38 | Progress Note ---
Subjective Date: 06/15/19 Time: 09:15 Principal diagnosis: SOB, pneumonia Interval history: This is a 68-year-old female who was admitted to the hospital with chest pain or shortness of breath. She states her shortness of breath was severe. However, this shortness of breath has improved. She is off of oxygen this morning and she is complaining of some mild shortness of breath at this time. She states that she does feel a lot better with oxygen in place. She denies any fever or chills. She denies any nausea, vomiting, diarrhea. Edema in her left leg has improved. She denies any chest pain or chest pressure. Exam Vital signs and Labs for Last 24 Hours: Temp Pulse Resp BP Pulse Ox 98.2 F 70 18 160/76 H 96 06/15/19 04:00 06/15/19 08:00 06/15/19 08:00 06/15/19 08:00 06/15/19 08:00 Laboratory Results - last 24 hr 06/14/19 08:55: Total Counted 100, Neutrophils % (Manual) 66, Lymphocytes % (Manual) 24, Monocytes % (Manual) 5, Eosinophils % (Manual) 5 H, Platelet Estimate Slight increase, RBC Morphology Normal 06/14/19 08:55: Magnesium 1.7 06/14/19 11:18: POC Glucose 201 H 06/14/19 16:56: POC Glucose 159 H 06/14/19 19:32: Sodium 143, Potassium 3.7, Chloride 108 H, Carbon Dioxide 23, Anion Gap 15.7 H, BUN 40 H, Creatinine 2.19 H, Estimated Creat Clear 39, Estimated GFR 22 L, Est GFR ( Amer) 27 L, Glucose 194 H, Calcium 8.7, Phosphorus 3.3, Magnesium 1.6, Total Bilirubin 0.3, AST 23, ALT 24, Alkaline Phosphatase 69, Total Protein 6.0 L, Albumin 2.2 L, Globulin 3.8 H, Albumin/Globulin Ratio 0.6 L 06/14/19 20:47: POC Glucose 173 H 06/15/19 05:37: WBC 16.6 H D, RBC 3.91 L, Hgb 10.0 L, Hct 32.6 L, MCV 83.4, MCH 25.6 L, MCHC 30.7 L, RDW 14.7, Plt Count 364, MPV 7.6, Neut % (Auto) 76.6, Lymph % (Auto) 15.6, [place] % (Auto) 5.2, Eos % (Auto) 2.1, Baso % (Auto) 0.5, Neut # (Auto) 12.7 H, Lymph # (Auto) 2.6, [place] # (Auto) 0.9, Eos # (Auto) 0.4, Baso # (Auto) 0.1 06/15/19 05:37: Sodium 144, Potassium 3.4 L, Chloride 108 H, Carbon Dioxide 23, Anion Gap 16.4 H, BUN 38 H, Creatinine 2.05 H, Estimated Creat Clear 40, Estimated GFR 24 L, Est GFR ( Amer) 29 L, Glucose 180 H, Calcium 8.7 06/15/19 05:46: POC Glucose 179 H I & O for Last 24 hours: Intake & Output 06/12/19 06/13/19 06/14/19 06/15/19 23:59 23:59 23:59 23:59 Intake Total 640 / 640 1700 / 1700 914 / 914 Output Total 850 / 850 5200 / 6075 875 / 875 Balance -210 / -210 -3500 / -4375 39 / 39 Weight 225 lb 7 oz 224 lb 7.983 oz 216 lb 4 oz Microbiology Reports for the Last 24 Hours: Microbiology 06/13/19 12:40 Urine,Catheterized Urine Culture - Preliminary NO GROWTH AFTER 24 HOURS Narrative: Her telemetry strip is sinus rhythm with a rate of 60 and PVCs. - Constitutional no acute distress, obese, chronically ill appearing - *Routine HEENT Exam Head: Present: normocephalic, atraumatic Eye: Present: EOMI, PERRL ENT: Present: mucous membranes moist - *Routine Neck Exam Present: supple, full ROM, normal carotid upstroke. Absent: JVD, carotid bruit, lymphadenopathy - *Routine Respiratory Exam Present: decreased breath sounds - *Routine Cardiovascular Exam Present: RRR, Normal S1, Normal S2. Absent: murmur - *Routine Abdominal Exam Present: soft, normoactive bowel sounds. Absent: tenderness, distended - *Routine Extremities Exam Present: edema (Trace edema in the left leg), full ROM (Of the left leg), pulses intact. Absent: cyanosis, clubbing - *Routine Skin Exam Present: warm. Absent: erythema, rash - *Routine Neurological Exam Present: alert, oriented X3, CN II-XII intact - Detailed Eye Exam Eyelids: Left normal inspection Progress Note: A&P (1) Paroxysmal atrial fibrillation Status: Acute Current Visit: Yes (2) Pneumonia Status: Acute Current Visit: Yes (3) Acute on chronic diastolic (congestive) heart failure Status: Acute Current Visit: Yes (4) Shortness of breath Status: Acute Current Visit: Yes (5) Edema Status: Acute Current Visit: Yes (6) CAD (coronary artery disease) Status: Chronic Current Visit: No (7) HTN (hypertension) Status: Chronic Current Visit: No (8) HLD (hyperlipidemia) Status: Chronic Current Visit: No (9) Left bundle branch block Status: Chronic Current Visit: No (10) Obesity Status: Acute Current Visit: No (11) Above knee amputation of right lower extremity Status: Chronic Current Visit: No (12) Diabetes mellitus Status: Chronic Current Visit: No (13) PAD (peripheral artery disease) Status: Chronic Current Visit: No (14) Cardiomyopathy Status: Chronic Current Visit: Yes Assessment and Plan for All Diagnoses:: Plan: 1. The patient was admitted with shortness of breath and chest pain with insp iration. The patient was found to have right upper lobe pneumonia. She has been treated with antibiotics per her primary care provider. Will defer. 2. The patient does have a history of diastolic congestive heart failure. She is likely having an exacerbation of this diastolic congestive heart failure. She has been receiving Lasix 40 mg IV twice daily. She has diuresed well. Recommend converting her over to oral Lasix today. 3. Her echocardiogram is still pending. However she does have a known cardiomyopathy with an ejection fraction at 40%. 4. Her heart rate is under better control today. We will continue metoprolol at current dose. 5. Her blood pressure is elevated today. We will increase her hydralazine to 50 mg p.o. every [address] Bartholomew. 6. Change her isosorbide over to isosorbide mononitrate 90 mg daily instead of twice daily dosing per Dr. Bartholomew. 7. Her creatinine is down to 2.0 from 2.2 yesterday. We will continue to follow her renal function. 8. Her coronary artery disease is likely stable. 9. PAD is likely stable. 10. Her LDL goal is less than 55. 11. She does have diabetes. She needs aggressive control of her diabetes as to not worsen her coronary artery disease. We will defer to her primary care provider. 12. Further recommendations will be made pending the patient's response to treatment. Thank you for the opportunity to help participate in care of this patient.
[2019-06-15 10:55] LABS: Eosinophils % 1 % (0-3); Hypochromasia 1+; Lymphocytes % 11 % (10-50); Monocytes % 4 % (2-9); Neutrophils % 84 % (42-76); Total Cells Counted 100
--- NOTE | 2019-06-15 13:46 | Progress Note ---
Internal Medicine - PN: Subj *Date: 06/15/19 *Time: 08:20 Interval history: Ms. Echols had a difficult time with rate control yesterday. Required diltiazem and metoprolol IV along with her oral metoprolol (new to her yesterday). Able to achieve rate control overnight. Tolerating p.o. intake. Diuresed aggressively, improved breathing today. Patient remains hemodynamicly stable, afebrile. Still slightly hypertensive. Denies nausea, vomiting, chest pain. Interval improvement in shortness of breath. -3.5 L for the past 24 hours. Exam Vital signs and Labs for Last 24 Hours: Temp Pulse Resp BP Pulse Ox 97.8 F 69 21 158/72 H 100 06/15/19 11:58 06/15/19 11:58 06/15/19 11:58 06/15/19 11:58 06/15/19 11:58 Laboratory Results - last 24 hr 06/14/19 16:56: POC Glucose 159 H 06/14/19 19:32: Sodium 143, Potassium 3.7, Chloride 108 H, Carbon Dioxide 23, Anion Gap 15.7 H, BUN 40 H, Creatinine 2.19 H, Estimated Creat Clear 39, Estimated GFR 22 L, Est GFR ( Amer) 27 L, Glucose 194 H, Calcium 8.7, Phosphorus 3.3, Magnesium 1.6, Total Bilirubin 0.3, AST 23, ALT 24, Alkaline Phosphatase 69, Total Protein 6.0 L, Albumin 2.2 L, Globulin 3.8 H, Albumin/Globulin Ratio 0.6 L 06/14/19 20:47: POC Glucose 173 H 06/15/19 05:37: WBC 16.6 H D, RBC 3.91 L, Hgb 10.0 L, Hct 32.6 L, MCV 83.4, MCH 25.6 L, MCHC 30.7 L, RDW 14.7, Plt Count 364, MPV 7.6, Neut % (Auto) 76.6, Lymph % (Auto) 15.6, [place] % (Auto) 5.2, Eos % (Auto) 2.1, Baso % (Auto) 0.5, Neut # (Auto) 12.7 H, Lymph # (Auto) 2.6, [place] # (Auto) 0.9, Eos # (Auto) 0.4, Baso # (Auto) 0.1, Total Counted 100, Neutrophils % (Manual) 84 H, Lymphocytes % (Manual) 11, Monocytes % (Manual) 4, Eosinophils % (Manual) 1, Platelet Estimate Normal, Hypochromasia 1+ 06/15/19 05:37: Sodium 144, Potassium 3.4 L, Chloride 108 H, Carbon Dioxide 23, Anion Gap 16.4 H, BUN 38 H, Creatinine 2.05 H, Estimated Creat Clear 40, Estimated GFR 24 L, Est GFR ( Amer) 29 L, Glucose 180 H, Calcium 8.7 06/15/19 05:46: POC Glucose 179 H 06/15/19 11:13: POC Glucose 210 H I & O for Last 24 hours: Intake & Output 06/12/19 06/13/19 06/14/19 06/15/19 23:59 23:59 23:59 23:59 Intake Total 640 / 640 1700 / 1700 914 / 914 Output Total 850 / 850 5200 / 6075 1775 / 1775 Balance -210 / -210 -3500 / -4375 -861 / -861 Weight 102.257 kg 101.831 kg 98.089 kg Microbiology Reports for the Last 24 Hours: Microbiology 06/13/19 12:40 Urine,Catheterized Urine Culture - Final NO GROWTH AFTER 48 HOURS Narrative: Patient is pleasant, talkative, oriented to person place and time Heart rate on library clerk in sinus rhythm with occasional PVCs. Lungs have rhonchi and crackles in the right base, Upper lobes are actually clear Abdomen soft and nontender. Left ankle is edematous with 1+ pitting edema at her sock line. Right side stump looks clear. Neurologic exam nonfocal and her cranial nerves and upper extremities, intermittent tremor Assessment and Plan (1) Paroxysmal atrial fibrillation Current visit: Yes Status: Acute Category: Medical Code(s): I48.0 - Paroxysmal atrial fibrillation (2) Pneumonia Current visit: Yes Status: Acute Category: Medical Code(s): J18.9 - Pneumonia, unspecified organism (3) Acute on chronic diastolic (congestive) heart failure Current visit: Yes Status: Acute Category: Medical Code(s): I50.33 - Acute on chronic diastolic (congestive) heart failure (4) Shortness of breath Current visit: Yes Status: Acute Category: Medical Code(s): R06.02 - Shortness of breath (5) Edema Current visit: Yes Status: Acute Category: Medical Code(s): R60.9 - Edema, unspecified (6) CAD (coronary artery disease) Current visit: No Status: Chronic Qualifiers: Coronary Disease-Associated Artery/Lesion type: [place] artery [place] vs. transplanted heart: [place] heart Associated angina: without angina Qualified Code(s): I25.10 - Atherosclerotic heart disease of [place] coronary artery without angina pectoris Category: Medical Code(s): I25.10 - Atherosclerotic heart disease of [place] coronary artery without angina pectoris (7) HTN (hypertension) Current visit: No Status: Chronic Qualifiers: Hypertension type: essential hypertension Qualified Code(s): I10 - Essential (primary) hypertension Category: Medical Code(s): I10 - Essential (primary) hypertension (8) HLD (hyperlipidemia) Current visit: No Status: Chronic Qualifiers: Hyperlipidemia type: mixed hyperlipidemia Qualified Code(s): E78.2 - Mixed hyperlipidemia Category: Medical Code(s): E78.5 - Hyperlipidemia, unspecified (9) Left bundle branch block Current visit: No Status: Chronic Category: Medical Code(s): I44.7 - Left bundle-branch block, unspecified (10) Obesity Current visit: No Status: Acute Qualifiers: Category: Medical Code(s): E66.9 - Obesity, unspecified (11) Above knee amputation of right lower extremity Current visit: No Status: Chronic Category: Surgical Code(s): Z89.611 - Acquired absence of right leg above knee (12) Diabetes mellitus Current visit: No Status: Chronic Qualifiers: Diabetes mellitus type: type 2 Diabetes mellitus buttermaker continuous churn insulin use: unspecified buttermaker continuous churn insulin use status Diabetes mellitus complication status: with unspecified complications Category: Medical Code(s): E11.9 - Type 2 diabetes mellitus without complications (13) PAD (peripheral artery disease) Current visit: No Status: Chronic Category: Medical Code(s): I73.9 - Peripheral vascular disease, unspecified (14) Cardiomyopathy Current visit: Yes Status: Chronic Category: Medical Code(s): I42.9 - Cardiomyopathy, unspecified - Assessment and plan all Dx Assessment and Plan for all problems:: Patient continues to improve. Still having shortness of breath above baseline. Became anxious today with physical therapy requiring re-use of CPAP. Given aggressive diuresis, less than 24 hours of rate control, and continued adjustments to her cardiac regimen and fluid status, we will continue to keep in the hospital with anticipated discharge tomorrow. Continue antibiotics for pneumonia. Overall condition is improving however still necessitating inpatient admission. Condition guarded, prognosis good
[2019-06-16 07:10] LABS: Basophils # 0.1 K/mm3 (0-0.2); Basophils % 0.4 % (0.1-2.0); Eosinophils # 0.2 K/mm3 (0.0-0.4); Hemoglobin 9.6 g/dL (12.2-16.2); Lymphocytes # 2.9 K/mm3 (0.7-4.5); Lymphocytes % 16.4 % (10-50); Mean Corpuscular HGB Conc 30.8 g/dL (31.8-35.4); Mean Corpuscular Volume 84.4 fl (81-99); Mean Platelet Volume 7.4 fl (7.4-10.4); Monocytes # 0.8 K/mm3 (0.1-1.0); Monocytes % 4.3 % (1.7-9.3); Neutrophils # 13.8 K/mm3 (1.8-7.8); Platelet Count 371 K/mm3 (142-424); Red Blood Count 3.68 M/mm3 (4.20-5.40); Red Cell Distribution Width 15.1 % (11.5-17.5); White Blood Count 17.7 K/mm3 (4.8-10.8)
[2019-06-16 07:15] LABS: Albumin Level 2.1 gm/dL (3.4-5.0); Albumin/Globulin Ratio 0.6 (1.1-1.8); Anion Gap 14.1 mEq/L (5-15); Bilirubin,Total 0.3 mg/dL (0.2-1.0); Calcium 8.5 mg/dL (8.5-10.1); Globulin 3.4 gm/dl (1.3-3.2); Total Protein,Serum 5.5 gm/dL (6.4-8.2)
--- NOTE | 2019-06-16 08:18 | Swing Bed Reports ---
*Admission Date: 06/14/19 *Reason for consult:: N/A *History of present illness: 68-year-old white female with long history of diabetes-insulin requiring, history of osteomyelitis/leg cellulitis with right AKA, history of diastolic CHF, who came to the emergency department with chest pain, dyspnea and shortness of air. In the emergency department infiltrate noted on chest x-ray but very suspicious in character, CT scan confirmed that this appears to be a significant right upper lobe pneumonic infiltrate, and given her chest pain and shortness of air and possible CHF exacerbation when she was admitted to the hospital. Hospital Course Hospital Course: Patient was admitted to hospital, started on standard community-acquired pneumonia protocol but patient had multiple episodes of atrial fibrillation. She was given a couple of doses of intravenous Cardizem and Cardizem drip was ordered a couple of times but interestingly patient spontaneously converted to sinus rhythm before this was administered. Cardiology was consulted and recommended continuing beta-blockade and her current therapy in view of her essentially negative heart cath from last week. She tolerated this well. Over the next couple of days she improved from a respiratory standpoint, her CHF was treated with higher doses of Lasix and she had a very brisk and full diuresis of about 3 L of fluid yesterday which resulted in very nicely improved pulmonary mechanics. This morning she feels better, but has been very very fatigued. She has troubles transferring from her scooter to her bed, and has significant functional deficits given her amputation status of her left leg. Plan will be to transfer her into swing bed to finish up IV therapy for antibiotics. I have ordered another PT/OT evaluation, and although obviously patient is not ambulatory patient does need physical therapy to assist with strengthening exercises on her remaining leg for transfer, balance tips on how to transfer safely and general upper body strengthening to once again assist her in transfer and also to help with general physical conditioning. Exam Vital signs and Labs for Last 24 Hours: Temp Pulse Resp BP Pulse Ox 98.0 F 69 19 159/70 H 2 L 06/16/19 04:00 06/16/19 06:00 06/16/19 04:00 06/16/19 04:00 06/16/19 06:00 Laboratory Results - last 24 hr 06/15/19 05:37: Total Counted 100, Neutrophils % (Manual) 84 H, Lymphocytes % (Manual) 11, Monocytes % (Manual) 4, Eosinophils % (Manual) 1, Platelet Estimate Normal, Hypochromasia 1+ 06/15/19 11:13: POC Glucose 210 H 06/15/19 16:26: POC Glucose 174 H 06/15/19 20:27: POC Glucose 154 H 06/16/19 05:47: WBC 17.7 H, RBC 3.68 L, Hgb 9.6 L, Hct 31.0 L, MCV 84.4, MCH 26.0 L, MCHC 30.8 L, RDW 15.1, Plt Count 371, MPV 7.4, Neut % (Auto) 78.0, Lymph % (Auto) 16.4, [place] % (Auto) 4.3, Eos % (Auto) 1.0, Baso % (Auto) 0.4, Neut # (Auto) 13.8 H, Lymph # (Auto) 2.9, [place] # (Auto) 0.8, Eos # (Auto) 0.2, Baso # (Auto) 0.1 06/16/19 05:47: Sodium 144, Potassium 3.1 L, Chloride 108 H, Carbon Dioxide 25, Anion Gap 14.1, BUN 37 H, Creatinine 2.02 H, Estimated Creat Clear 40, Estimated GFR 24 L, Est GFR ( Amer) 30 L, Glucose 174 H, Calcium 8.5, Magnesium 1.7, Total Bilirubin 0.3, AST 24, ALT 21, Alkaline Phosphatase 59, Total Protein 5.5 L, Albumin 2.1 L, Globulin 3.4 H, Albumin/Globulin Ratio 0.6 L 06/16/19 06:25: POC Glucose 165 H I & O for Last 24 hours: Intake & Output 06/13/19 06/14/19 06/15/19 06/16/19 11:59 11:59 11:59 11:59 Intake Total 1584 / 1584 1670 / 1670 410 / 410 Output Total 4400 / 4400 3425 / 3425 300 / 300 Balance -2816 / -2816 -1755 / -1755 110 / 110 Weight 259 lb 224 lb 8 oz 216 lb 4 oz 213 lb 2 oz Microbiology Reports for the Last 24 Hours: Microbiology 06/13/19 15:03 Blood Blood Culture - Preliminary NO GROWTH AFTER 48 HOURS 06/13/19 15:03 Blood Blood Culture - Preliminary NO GROWTH AFTER 48 HOURS 06/13/19 12:40 Urine,Catheterized Urine Culture - Final NO GROWTH AFTER 48 HOURS Narrative: Patient is pleasant, alert. Oriented x3. Heart rate bradycardic with occasional ectopic beats. Lungs have good air movement, much better than yesterday. Abdomen soft and benign, obesity limits exam. Remaining leg on the right is afflicted with trace ankle edema, some weakness. However no focal cranial nerve deficits. Results Labs on day of discharge: Labs from last 24 hours 06/16/19 06/16/19 06/16/19 06:25 05:47 05:47 WBC 17.7 H RBC 3.68 L Hgb 9.6 L Hct 31.0 L MCV 84.4 MCH 26.0 L MCHC 30.8 L RDW 15.1 Plt Count 371 MPV 7.4 Neut % (Auto) 78.0 Lymph % (Auto) 16.4 [place] % (Auto) 4.3 Eos % (Auto) 1.0 Baso % (Auto) 0.4 Neut # (Auto) 13.8 H Lymph # (Auto) 2.9 [place] # (Auto) 0.8 Eos # (Auto) 0.2 Baso # (Auto) 0.1 Total Counted Neutrophils % (Manual) Lymphocytes % (Manual) Monocytes % (Manual) Eosinophils % (Manual) Platelet Estimate Hypochromasia Sodium 144 Potassium 3.1 L Chloride 108 H Carbon Dioxide 25 Anion Gap 14.1 BUN 37 H Creatinine 2.02 H Estimated Creat Clear 40 Estimated GFR 24 L Est GFR ( Amer) 30 L Glucose 174 H POC Glucose 165 H Calcium 8.5 Magnesium 1.7 Total Bilirubin 0.3 AST 24 ALT 21 Alkaline Phosphatase 59 Total Protein 5.5 L Albumin 2.1 L Globulin 3.4 H Albumin/Globulin Ratio 0.6 L 06/15/19 06/15/19 06/15/19 20:27 16:26 11:13 WBC RBC Hgb Hct MCV MCH MCHC RDW Plt Count MPV Neut % (Auto) Lymph % (Auto) [place] % (Auto) Eos % (Auto) Baso % (Auto) Neut # (Auto) Lymph # (Auto) [place] # (Auto) Eos # (Auto) Baso # (Auto) Total Counted Neutrophils % (Manual) Lymphocytes % (Manual) Monocytes % (Manual) Eosinophils % (Manual) Platelet Estimate Hypochromasia Sodium Potassium Chloride Carbon Dioxide Anion Gap BUN Creatinine Estimated Creat Clear Estimated GFR Est GFR ( Amer) Glucose POC Glucose 154 H 174 H 210 H Calcium Magnesium Total Bilirubin AST ALT Alkaline Phosphatase Total Protein Albumin Globulin Albumin/Globulin Ratio 06/15/19 05:37 WBC RBC Hgb Hct MCV MCH MCHC RDW Plt Count MPV Neut % (Auto) Lymph % (Auto) [place] % (Auto) Eos % (Auto) Baso % (Auto) Neut # (Auto) Lymph # (Auto) [place] # (Auto) Eos # (Auto) Baso # (Auto) Total Counted 100 Neutrophils % (Manual) 84 H Lymphocytes % (Manual) 11 Monocytes % (Manual) 4 Eosinophils % (Manual) 1 Platelet Estimate Normal Hypochromasia 1+ Sodium Potassium Chloride Carbon Dioxide Anion Gap BUN Creatinine Estimated Creat Clear Estimated GFR Est GFR ( Amer) Glucose POC Glucose Calcium Magnesium Total Bilirubin AST ALT Alkaline Phosphatase Total Protein Albumin Globulin Albumin/Globulin Ratio Preliminary micro results at discharge 06/13/19 15:03 Blood Culture - Preliminary Blood NO GROWTH AFTER 48 HOURS 06/13/19 15:03 Blood Culture - Preliminary Blood NO GROWTH AFTER 48 HOURS DS: Diagnosis - Discharge Diagnosis (1) Paroxysmal atrial fibrillation Status: Chronic (2) Pneumonia Status: Acute (3) Acute on chronic diastolic (congestive) heart failure Status: Acute (4) Shortness of breath Status: Acute (5) Edema Status: Acute (6) CAD (coronary artery disease) Status: Chronic (7) HTN (hypertension) Status: Chronic (8) HLD (hyperlipidemia) Status: Chronic (9) Left bundle branch block Status: Chronic (10) Obesity Status: Acute (11) Above knee amputation of right lower extremity Status: Chronic (12) Diabetes mellitus Status: Chronic (13) PAD (peripheral artery disease) Status: Chronic (14) Cardiomyopathy Status: Chronic Discharge/Transfer (Swing Bed) - Plan of Care Resident has been informed of condition and prognosis?: Yes Mobility Status: ambulatory w/o assistance Goal of treatment:: Finish CAP tx. Transfer help/PT Rehab Potential: Fair Prognosis:: good Mental Status: Oriented x 3 I concur with the most recent H&P: Yes Date of most recent H&P: 06/16/19 Certification: I have reviewed and agree with this resident's plan of care. I certify that post-hospital snf facility services are required to be given on an inpatient basis because of the need for snf care on a continuing basis for the condition(s) for which he/she is receiving inpatient hospital services prior to admission to [facility]. I also certify that the resident meets existing SNF level of care definition. - Discharge from Acute Disposition: [facility] Current Home Med List: Home Medications Medication Instructions Recorded Confirmed Type Amlodipine Besylate [Amlodipine 10 mg PO DAILY 06/13/19 06/13/19 History 10mg Tab] Lisinopril [Lisinopril 10mg Tab] 10 mg PO DAILY 06/13/19 06/13/19 History Atorvastatin Calcium [Atorvastatin 40 mg PO HS 06/14/19 06/14/19 History 40mg Tab] Bisoprolol Fumarate [Bisoprolol 10 mg PO BID 06/14/19 06/14/19 History 10mg Tablet] Insulin NPH Hum/Reg Insulin Hm 5 unit SQ DAILY 06/14/19 06/14/19 History [Humulin 70/30 Kwikpen] Insulin NPH Hum/Reg Insulin Hm 5 unit SQ HS 06/14/19 06/14/19 History [Humulin 70/30 Kwikpen] Linaclotide [Linzess] 145 mcg PO DAILY 06/14/19 06/14/19 History Cefdinir [Omnicef 300mg Capsule] 300 mg PO BID 7 Days #14 cap 06/15/19 Rx Hydralazine HCl [Hydralazine HCl 50 mg PO TID 30 Days #90 tab 06/15/19 Rx 25mg Tablet] Metoprolol Tartrate [Lopressor 50 mg PO BID 30 Days #60 tab 06/15/19 Rx 50mg tablet] hydroCHLOROthiazide [HCTZ 25mg 6.25 mg PO DAILY 30 Days #30 tab 06/15/19 Rx tab] Home Med List for [facility]: New Metoprolol Tartrate [Lopressor 50mg tablet] 50 mg PO BID 30 Days #60 tab Cefdinir [Omnicef 300mg Capsule] 300 mg PO BID 7 Days #14 cap Hydralazine HCl [Hydralazine HCl 25mg Tablet] 50 mg PO TID 30 Days #90 tab hydroCHLOROthiazide [HCTZ 25mg tab] 6.25 mg PO DAILY 30 Days #30 tab Continued loratadine 10 mg tablet 10 mg PO DAILY tab naproxen 500 mg tablet 500 mg PO BID nitroglycerin 0.4 mg sublingual tablet 0.4 mg SUBLINGUAL Q5M PRN PRN Reason: Chest Pain albuterol sulfate HFA 90 mcg/actuation aerosol inhaler 2 puff INHALATION Q6H PRN PRN Reason: copd pantoprazole 40 mg tablet,delayed release 40 mg PO DAILY tab metoclopramide 10 mg tablet 10 mg PO ACHS levothyroxine 100 mcg tablet 100 mcg PO DAILY tab tramadol 50 mg tablet 100 mg PO Q4HP PRN PRN Reason: PAIN gabapentin 300 mg capsule 300 mg PO HS cap aspirin 81 mg tablet,delayed release 81 mg PO DAILY ibuprofen 200 mg tablet 400 mg PO HS tab multivitamin tablet 1 tab PO DAILY isosorbide mononitrate ER 60 mg tablet,extended release 24 hr 60 mg PO BID Amlodipine Besylate [Amlodipine 10mg Tab] 10 mg PO DAILY Linaclotide [Linzess] 145 mcg PO DAILY Insulin NPH Hum/Reg Insulin Hm [Humulin 70/30 Kwikpen] 5 unit SQ HS Insulin NPH Hum/Reg Insulin Hm [Humulin 70/30 Kwikpen] 5 unit SQ DAILY Lisinopril [Lisinopril 10mg Tab] 10 mg PO DAILY Atorvastatin Calcium [Atorvastatin 40mg Tab] 40 mg PO HS Discontinued Bisoprolol Fumarate [Bisoprolol 10mg Tablet] 10 mg PO BID
--- NOTE | 2019-06-16 09:38 | Progress Note ---
Subjective Date: 06/16/19 Time: 09:00 Principal diagnosis: SOB, pneumonia Interval history: This is a 68-year-old female who was admitted to the hospital with chest pain and pressure. She was found to have pneumonia as well as an acute exacerbation of her diastolic congestive heart failure. The patient did go into atrial fibrillation and converted back to sinus rhythm. She did have another episode of atrial fibrillation this morning. She was given a Cardizem bolus and has converted back to sinus rhythm with a heart rate in the 80s. She denies any chest pain or pressure. She states that her shortness of breath has significantly improved. Her edema has improved. She denies any nausea, vomiting, diarrhea. Exam Vital signs and Labs for Last 24 Hours: Temp Pulse Resp BP Pulse Ox 97.8 F 76 18 165/43 H 98 06/16/19 08:00 06/16/19 08:00 06/16/19 08:00 06/16/19 08:00 06/16/19 08:00 Laboratory Results - last 24 hr 06/15/19 05:37: Total Counted 100, Neutrophils % (Manual) 84 H, Lymphocytes % (Manual) 11, Monocytes % (Manual) 4, Eosinophils % (Manual) 1, Platelet Estimate Normal, Hypochromasia 1+ 06/15/19 11:13: POC Glucose 210 H 06/15/19 16:26: POC Glucose 174 H 06/15/19 20:27: POC Glucose 154 H 06/16/19 05:47: WBC 17.7 H, RBC 3.68 L, Hgb 9.6 L, Hct 31.0 L, MCV 84.4, MCH 26.0 L, MCHC 30.8 L, RDW 15.1, Plt Count 371, MPV 7.4, Neut % (Auto) 78.0, Lymph % (Auto) 16.4, [place] % (Auto) 4.3, Eos % (Auto) 1.0, Baso % (Auto) 0.4, Neut # (Auto) 13.8 H, Lymph # (Auto) 2.9, [place] # (Auto) 0.8, Eos # (Auto) 0.2, Baso # (Auto) 0.1 06/16/19 05:47: Sodium 144, Potassium 3.1 L, Chloride 108 H, Carbon Dioxide 25, Anion Gap 14.1, BUN 37 H, Creatinine 2.02 H, Estimated Creat Clear 40, Estimated GFR 24 L, Est GFR ( Amer) 30 L, Glucose 174 H, Calcium 8.5, Magnesium 1. 7, Total Bilirubin 0.3, AST 24, ALT 21, Alkaline Phosphatase 59, Total Protein 5.5 L, Albumin 2.1 L, Globulin 3.4 H, Albumin/Globulin Ratio 0.6 L 06/16/19 06:25: POC Glucose 165 H I & O for Last 24 hours: Intake & Output 06/13/19 06/14/19 06/15/19 06/16/19 23:59 23:59 23:59 23:59 Intake Total 640 / 640 1700 / 1700 1324 / 1324 Output Total 850 / 850 5200 / 6075 2074 / 5 Balance -210 / -210 -3500 / -4375 -751 / -751 Weight 225 lb 7 oz 224 lb 7.983 oz 216 lb 4 oz 213 lb 2 oz Microbiology Reports for the Last 24 Hours: Microbiology 06/13/19 15:03 Blood Blood Culture - Preliminary NO GROWTH AFTER 48 HOURS 06/13/19 15:03 Blood Blood Culture - Preliminary NO GROWTH AFTER 48 HOURS 06/13/19 12:40 Urine,Catheterized Urine Culture - Final NO GROWTH AFTER 48 HOURS Narrative: Her telemetry strip is sinus rhythm with a rate of 80. - Constitutional no acute distress, obese - *Routine HEENT Exam Head: Present: normocephalic, atraumatic Eye: Present: EOMI, PERRL ENT: Present: mucous membranes moist - *Routine Neck Exam Present: supple, full ROM, normal carotid upstroke. Absent: JVD, carotid bruit, lymphadenopathy - *Routine Respiratory Exam Present: decreased breath sounds, rhonchi - *Routine Cardiovascular Exam Present: RRR, Normal S1, Normal S2. Absent: murmur - *Routine Abdominal Exam Present: soft, normoactive bowel sounds. Absent: tenderness, distended - *Routine Extremities Exam Present: full ROM, pulses intact, normal capillary refill. Absent: cyanosis, clubbing, edema - *Routine Skin Exam Present: intact, warm. Absent: rash - *Routine Neurological Exam Present: alert, oriented X3, CN II-XII intact. Absent: sensory deficit, motor deficit - Detailed Eye Exam Eyelids: Left normal inspection Progress Note: A&P (1) Paroxysmal atrial fibrillation Status: Chronic Current Visit: Yes (2) Pneumonia Status: Acute Current Visit: Yes (3) Acute on chronic diastolic (congestive) heart failure Status: Acute Current Visit: Yes (4) Shortness of breath Status: Acute Current Visit: Yes (5) Edema Status: Acute Current Visit: Yes (6) CAD (coronary artery disease) Status: Chronic Current Visit: No (7) HTN (hypertension) Status: Chronic Current Visit: No (8) HLD (hyperlipidemia) Status: Chronic Current Visit: No (9) Left bundle branch block Status: Chronic Current Visit: No (10) Obesity Status: Acute Current Visit: No (11) Above knee amputation of right lower extremity Status: Chronic Current Visit: No (12) Diabetes mellitus Status: Chronic Current Visit: No (13) PAD (peripheral artery disease) Status: Chronic Current Visit: No (14) Cardiomyopathy Status: Chronic Current Visit: Yes Assessment and Plan for All Diagnoses:: Plan: 1. The patient was admitted with shortness of breath and chest pain on inspiration. She was found to have right upper lobe pneumonia. She is currently being treated with antibiotics. 2. The patient did have an acute exacerbation of diastolic congestive heart failure. Recommend oral Lasix at this time. She would benefit from being on Aldactone as well given her hypokalemia. We will start her on Aldactone 50 mill grams p.o. twice daily. 3. Her echocardiogram is still currently pending. 4. Her blood pressure is still elevated. We will increase her isosorbide mononitrate to 120 mg daily for better blood pressure control. 5. The patient does have paroxysmal atrial fibrillation. She did go in A. fib with RVR this morning. She was given a Cardizem bolus and did convert to sinus rhythm. Her heart rate dropped down into the 40s and remains around the 80s at this time. We will continue her current metoprolol. If she does get tachycardic again then we may consider increasing her metoprolol. 6. Her coronary artery disease is likely stable. 7. Her LDL goal is less than 55. 8. Her creatinine is stable at 2.0. 9. Her PAD is likely stable. 10. She does have diabetes. She does need aggressive control of her diabetes as to not worsen her coronary artery disease and peripheral arterial disease. 11. The patient is going to a swing bed for skilled rehab. Thank you for the opportunity to participate in the care of this patient.
[2019-06-16 10:06] LABS: Eosinophils % 1 % (0-3); Lymphocytes % 11 % (10-50); Monocytes % 5 % (2-9); Neutrophils % 83 % (42-76); Total Cells Counted 100
[2019-06-16 10:10] LABS: Hypochromasia 1+
--- NOTE | 2019-06-17 08:31 | Progress Note ---
Subjective Date: 06/17/19 Time: 08:28 Principal diagnosis: SOB, pneumonia Interval history: 68 yo WF in bed in NAD. Telemetry overnight reviewed with pauses up to 5 seconds noted with frequent ectopy noted. Amio gtt has been stopped. Pt denies any chest pain. Possibly going to swing bed today for further recovery/treatment. Exam Vital signs and Labs for Last 24 Hours: Temp Pulse Resp BP Pulse Ox 97.6 F 73 18 158/57 H 96 06/17/19 08:00 06/17/19 08:00 06/17/19 08:00 06/17/19 08:00 06/17/19 08:00 Laboratory Results - last 24 hr 06/16/19 05:47: Total Counted 100, Neutrophils % (Manual) 83 H, Lymphocytes % (Manual) 11, Monocytes % (Manual) 5, Eosinophils % (Manual) 1, Platelet Estimate Normal, Hypochromasia 1+ 06/16/19 11:47: POC Glucose 284 H 06/16/19 16:28: POC Glucose 185 H 06/16/19 19:43: POC Glucose 231 H 06/17/19 05:33: POC Glucose 196 H I & O for Last 24 hours: Intake & Output 06/14/19 06/15/19 06/16/19 06/17/19 11:59 11:59 11:59 11:59 Intake Total 1584 / 1584 1670 / 1670 410 / 410 822 / 822 Output Total 4400 / 4400 3425 / 3425 300 / 300 200 / 200 Balance -2816 / -2816 -1755 / -1755 110 / 110 622 / 622 Weight 224 lb 8 oz 216 lb 4 oz 213 lb 2 oz 213 lb 2.004 oz - *Routine Respiratory Exam Present: decreased breath sounds, CTA bilaterally. Absent: accessory muscle use, rales, rhonchi, wheezes - *Routine Cardiovascular Exam Present: RRR. Absent: murmur, gallop, rubs - *Routine Neurological Exam Present: alert, oriented X3, moving all extremities Progress Note: A&P (1) Paroxysmal atrial fibrillation Status: Chronic Current Visit: Yes (2) Pneumonia Status: Acute Current Visit: Yes (3) Acute on chronic diastolic (congestive) heart failure Status: Acute Current Visit: Yes (4) Shortness of breath Status: Acute Current Visit: Yes (5) Edema Status: Acute Current Visit: Yes (6) CAD (coronary artery disease) Status: Chronic Current Visit: No (7) HTN (hypertension) Status: Chronic Current Visit: No (8) HLD (hyperlipidemia) Status: Chronic Current Visit: No (9) Left bundle branch block Status: Chronic Current Visit: No (10) Obesity Status: Acute Current Visit: No (11) Above knee amputation of right lower extremity Status: Chronic Current Visit: No (12) Diabetes mellitus Status: Chronic Current Visit: No (13) PAD (peripheral artery disease) Status: Chronic Current Visit: No (14) Cardiomyopathy Status: Chronic Current Visit: Yes Assessment and Plan for All Diagnoses:: 1. Amio gtt stopped. No plans to continue amiodarone. 2. Use metoprolol for HR/BP control 3. Elevated CHADS-VASc score with PAF, recommend anticoagulation therapy. Currently on BID lovenox. 4. Non-ischemic, dilated Cardiomyopathy by cath last week, on KARRI, BB, lasix, ASA, statin and aldactone. No digoxin due to CKD. 5. Discussed with Dr. Davis. Will be available to see as needed.
--- NOTE | 2019-06-17 08:57 | Progress Note ---
Internal Medicine - PN: Subj *Date: 06/17/19 *Time: 09:16 Interval history: Ms. Echols unfortunately went back into A. fib with RVR yesterday necessitating an amiodarone drip. She was captured over the course of the afternoon and evening with sinus rhythm for the past 12 to 16 hours. This morning it is noted that she is having 1 to 3-second pauses in her heart rate. Blood pressure has maintained at an appropriate level. Stable shortness of breath, afebrile, no nausea or vomiting. Tolerated a small amount of breakfast. Was intended to be switched to swing status yesterday for rehab for upper extremity strength and mobility however due to need for amiodarone drip, was maintained in stepdown level. Exam Vital signs and Labs for Last 24 Hours: Temp Pulse Resp BP Pulse Ox 97.6 F 73 18 158/57 H 97 06/17/19 08:00 06/17/19 08:27 06/17/19 08:27 06/17/19 08:00 06/17/19 08:27 Laboratory Results - last 24 hr 06/16/19 05:47: Total Counted 100, Neutrophils % (Manual) 83 H, Lymphocytes % (Manual) 11, Monocytes % (Manual) 5, Eosinophils % (Manual) 1, Platelet Estimate Normal, Hypochromasia 1+ 06/16/19 11:47: POC Glucose 284 H 06/16/19 16:28: POC Glucose 185 H 06/16/19 19:43: POC Glucose 231 H 06/17/19 05:33: POC Glucose 196 H I & O for Last 24 hours: Intake & Output 06/14/19 06/15/19 06/16/19 06/17/19 23:59 23:59 23:59 23:59 Intake Total 1700 / 1700 1324 / 1324 822 / 822 0 / 0 Output Total 5200 / 6075 2075 / 2075 200 / 200 Balance -3500 / -4375 -751 / -751 622 / 622 0 / 0 Weight 101.831 kg 98.089 kg 96.672 kg 96.672 kg Narrative: Patient is pleasant, talkative, oriented to person place and time 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 Regular rate on exam, no murmurs. Lungs with interval improvement in good air movement in anterior lung davis. Does still have some faint crackles in the right base Abdomen soft and nontender. Left ankle is edematous with 1+ pitting edema at her sock line. Right side stump looks clear. Neurologic exam nonfocal and her cranial nerves and upper extremities, intermi ttent tremor Assessment and Plan (1) Paroxysmal atrial fibrillation Current visit: Yes Status: Chronic Category: Medical Code(s): I48.0 - Paroxysmal atrial fibrillation (2) Pneumonia Current visit: Yes Status: Acute Category: Medical Code(s): J18.9 - Pneumonia, unspecified organism (3) Acute on chronic diastolic (congestive) heart failure Current visit: Yes Status: Acute Category: Medical Code(s): I50.33 - Acute on chronic diastolic (congestive) heart failure (4) Shortness of breath Current visit: Yes Status: Acute Category: Medical Code(s): R06.02 - Shortness of breath (5) Edema Current visit: Yes Status: Acute Category: Medical Code(s): R60.9 - Edema, unspecified (6) CAD (coronary artery disease) Current visit: No Status: Chronic Qualifiers: Coronary Disease-Associated Artery/Lesion type: [place] artery [place] vs. transplanted heart: [place] heart Associated angina: without angina Qualified Code(s): I25.10 - Atherosclerotic heart disease of [place] coronary artery without angina pectoris Category: Medical Code(s): I25.10 - Atherosclerotic heart disease of [place] coronary artery without angina pectoris (7) HTN (hypertension) Current visit: No Status: Chronic Qualifiers: Hypertension type: essential hypertension Qualified Code(s): I10 - Essential (primary) hypertension Category: Medical Code(s): I10 - Essential (primary) hypertension (8) HLD (hyperlipidemia) Current visit: No Status: Chronic Qualifiers: Hyperlipidemia type: mixed hyperlipidemia Qualified Code(s): E78.2 - Mixed hyperlipidemia Category: Medical Code(s): E78.5 - Hyperlipidemia, unspecified (9) Left bundle branch block Current visit: No Status: Chronic Category: Medical Code(s): I44.7 - Left bundle-branch block, unspecified (10) Obesity Current visit: No Status: Acute Qualifiers: Category: Medical Code(s): E66.9 - Obesity, unspecified (11) Above knee amputation of right lower extremity Current visit: No Status: Chronic Category: Surgical Code(s): Z89.611 - Acquired absence of right leg above knee (12) Diabetes mellitus Current visit: No Status: Chronic Qualifiers: Diabetes mellitus type: type 2 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 Stop amiodarone drip. Will increase to 75 mg this morning. If tolerates this, pending heart rate and blood pressure will either maintain at 75 mg for this evening or increase 200 mg with a plan to continue best dose at twice a daily. If remains stable this afternoon will come out of stepdown status. If remains captured with appropriate heart rate overnight, will switch to swing status tomorrow. Physical therapy to work with her again today.
--- NOTE | 2019-06-17 09:43 | Progress Note ---
Internal Medicine - PN: Subj *Date: 06/17/19 *Time: 09:43 Exam Vital signs and Labs for Last 24 Hours: Temp Pulse Resp BP Pulse Ox 97.6 F 73 18 158/57 H 97 06/17/19 08:00 06/17/19 08:27 06/17/19 08:27 06/17/19 08:00 06/17/19 08:27 Laboratory Results - last 24 hr 06/16/19 05:47: Total Counted 100, Neutrophils % (Manual) 83 H, Lymphocytes % (Manual) 11, Monocytes % (Manual) 5, Eosinophils % (Manual) 1, Platelet Estimate Normal, Hypochromasia 1+ 06/16/19 11:47: POC Glucose 284 H 06/16/19 16:28: POC Glucose 185 H 06/16/19 19:43: POC Glucose 231 H 06/17/19 05:33: POC Glucose 196 H I & O for Last 24 hours: Intake & Output 06/14/19 06/15/19 06/16/19 06/17/19 23:59 23:59 23:59 23:59 Intake Total 1700 / 1700 1324 / 1324 822 / 822 0 / 0 Output Total 5200 / 6075 2075 / 2075 200 / 200 Balance -3500 / -4375 -751 / -751 622 / 622 0 / 0 Weight 101.831 kg 98.089 kg 96.672 kg 96.672 kg Assessment and Plan (1) Paroxysmal atrial fibrillation Current visit: Yes Status: Chronic Category: Medical Code(s): I48.0 - Paroxysmal atrial fibrillation (2) Pneumonia Current visit: Yes Status: Acute Category: Medical Code(s): J18.9 - Pneumonia, unspecified organism (3) Acute on chronic diastolic (congestive) heart failure Current visit: Yes Status: Acute Category: Medical Code(s): I50.33 - Acute on chronic diastolic (congestive) heart failure (4) Shortness of breath Current visit: Yes Status: Acute Category: Medical Code(s): R06.02 - Shortness of breath (5) Edema Current visit: Yes Status: Acute Category: Medical Code(s): R60.9 - Edema, unspecified (6) CAD (coronary artery disease) Current visit: No Status: Chronic Qualifiers: Coronary Disease-Associated Artery/Lesion type: [place] artery [place] vs. transplanted heart: [place] heart Associated angina: without angina Qualified Code(s): I25.10 - Atherosclerotic heart disease of [place] coronary artery without angina pectoris Category: Medical Code(s): I25.10 - Atherosclerotic heart disease of [place] coronary artery without angina pectoris (7) HTN (hypertension) Current visit: No Status: Chronic Qualifiers: Hypertension type: essential hypertension Qualified Code(s): I10 - Essential (primary) hypertension Category: Medical Code(s): I10 - Essential (primary) hypertension (8) HLD (hyperlipidemia) Current visit: No Status: Chronic Qualifiers: Hyperlipidemia type: mixed hyperlipidemia Qualified Code(s): E78.2 - Mixed hyperlipidemia Category: Medical Code(s): E78.5 - Hyperlipidemia, unspecified (9) Left bundle branch block Current visit: No Status: Chronic Category: Medical Code(s): I44.7 - Left bundle-branch block, unspecified (10) Obesity Current visit: No Status: Acute Qualifiers: Category: Medical Code(s): E66.9 - Obesity, unspecified (11) Above knee amputation of right lower extremity Current visit: No Status: Chronic Category: Surgical Code(s): Z89.611 - Acquired absence of right leg above knee (12) Diabetes mellitus Current visit: No Status: Chronic Qualifiers: Diabetes mellitus type: type 2 Diabetes mellitus nursing home insulin use: unspecified nursing home insulin use status Diabetes mellitus complication status: with unspecified complications Category: Medical Code(s): E11.9 - Type 2 diabetes mellitus without complications (13) PAD (peripheral artery disease) Current visit: No Status: Chronic Category: Medical Code(s): I73.9 - Peripheral vascular disease, unspecified (14) Cardiomyopathy Current visit: Yes Status: Chronic Category: Medical Code(s): I42.9 - Cardiomyopathy, unspecified The patient's infection will respond to the chosen ABx?: Yes Is the patient receiving the right drug, dose, and route?: Yes Could a more targeted ABx be ordered?: No
--- NOTE | 2019-06-18 09:11 | Progress Note ---
Internal Medicine - PN: Subj *Date: 06/18/19 *Time: 09:07 Interval history: Events of yesterday noted with bradycardia on amiodarone drip, she is now on metoprolol, higher dose. Of note swing bed admission was canceled because of her recurrent A. fib with RVR. Cardiology consultation reviewed. Appreciate information. Exam Vital signs and Labs for Last 24 Hours: Temp Pulse Resp BP Pulse Ox 97.7 F 104 H 24 137/75 98 06/18/19 07:29 06/18/19 07:29 06/18/19 07:29 06/18/19 07:29 06/18/19 08:00 Laboratory Results - last 24 hr 06/17/19 11:32: POC Glucose 184 H 06/17/19 16:11: POC Glucose 188 H 06/17/19 19:44: POC Glucose 214 H 06/18/19 05:54: POC Glucose 165 H I & O for Last 24 hours: Intake & Output 06/15/19 06/16/19 06/17/19 06/18/19 11:59 11:59 11:59 11:59 Intake Total 1670 / 1670 410 / 410 1302 / 1302 840 / 840 Output Total 3425 / 3425 300 / 300 500 / 500 450 / 450 Balance -1755 / -1755 110 / 110 802 / 802 390 / 390 Weight 216 lb 4 oz 213 lb 2 oz 213 lb 2.004 oz 217 lb Narrative: Patient is pleasant and talkative. Alert, oriented x3. Pulse rate in the 130s, blood pressure is unremarkable. Abdomen soft and nontender. No edema noted. Assessment and Plan (1) Paroxysmal atrial fibrillation Current visit: Yes Status: Chronic Category: Medical Code(s): I48.0 - Paroxysmal atrial fibrillation (2) Pneumonia Current visit: Yes Status: Acute Category: Medical Code(s): J18.9 - Pneumonia, unspecified organism (3) Acute on chronic diastolic (congestive) heart failure Current visit: Yes Status: Acute Category: Medical Code(s): I50.33 - Acute on chronic diastolic (congestive) heart failure (4) Shortness of breath Current visit: Yes Status: Acute Category: Medical Code(s): R06.02 - Shortness of breath (5) Edema Current visit: Yes Status: Acute Category: Medical Code(s): R60.9 - Edema, unspecified (6) CAD (coronary artery disease) Current visit: No Status: Chronic Qualifiers: Coronary Disease-Associated Artery/Lesion type: [place] artery [place] vs. transplanted heart: [place] heart Associated angina: without angina Qualified Code(s): I25.10 - Atherosclerotic heart disease of [place] coronary artery without angina pectoris Category: Medical Code(s): I25.10 - Atherosclerotic heart disease of [place] coronary artery without angina pectoris (7) HTN (hypertension) Current visit: No Status: Chronic Qualifiers: Hypertension type: essential hypertension Qualified Code(s): I10 - Essential (primary) hypertension Category: Medical Code(s): I10 - Essential (primary) hypertension (8) HLD (hyperlipidemia) Current visit: No Status: Chronic Qualifiers: Hyperlipidemia type: mixed hyperlipidemia Qualified Code(s): E78.2 - Mixed hyperlipidemia Category: Medical Code(s): E78.5 - Hyperlipidemia, unspecified (9) Left bundle branch block Current visit: No Status: Chronic Category: Medical Code(s): I44.7 - Left bundle-branch block, unspecified (10) Obesity Current visit: No Status: Acute Qualifiers: Category: Medical Code(s): E66.9 - Obesity, unspecified (11) Above knee amputation of right lower extremity Current visit: No Status: Chronic Category: Surgical Code(s): Z89.611 - Acquired absence of right leg above knee (12) Diabetes mellitus Current visit: No Status: Chronic Qualifiers: Diabetes mellitus type: type 2 Diabetes mellitus 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 Pneumonia seems to be improving. I would recommend continuing rate control but I think patient would benefit from higher beta block dosage and pacemaker.
--- NOTE | 2019-06-18 13:39 | Progress Note ---
Subjective Date: 06/18/19 Time: 13:35 Principal diagnosis: SOB, pneumonia Interval history: This is a 68 year old white female admitted for SOB and pneumonia. Also some diastolic CHF. pt has had multiple episodes of afib with RVR. She was treated with metoprolol and amio. pt had 5 second pauses with frequent ectopy noted. amio drip was stopped and metoprolol was decreased. Last night she went back in to afib with RVR. today she has a HR between 55-62 with 2 second pauses. unable to advance metoprolol due to HR and pauses or add additional anti-arrhythmics. Denies CP or pressure. SOB is better. Edema is better. no fever, chills, N/V/D, PND or orthopnea. Exam Vital signs and Labs for Last 24 Hours: Temp Pulse Resp BP Pulse Ox 98.1 F 60 20 138/70 96 06/18/19 12:00 06/18/19 12:00 06/18/19 12:00 06/18/19 12:00 06/18/19 12:00 Laboratory Results - last 24 hr 06/17/19 16:11: POC Glucose 188 H 06/17/19 19:44: POC Glucose 214 H 06/18/19 05:54: POC Glucose 165 H 06/18/19 11:23: POC Glucose 192 H I & O for Last 24 hours: Intake & Output 06/15/19 06/16/19 06/17/19 06/18/19 23:59 23:59 23:59 23:59 Intake Total 1324 / 1324 822 / 822 1310 / 1310 Output Total 2075 / 2075 200 / 200 750 / 750 Balance -751 / -751 622 / 622 560 / 560 Weight 216 lb 4 oz 213 lb 2 oz 213 lb 2.004 oz 217 lb Narrative: EKG is afib with a rate of 55. - Constitutional no acute distress, obese - *Routine HEENT Exam Head: Present: normocephalic, atraumatic Eye: Present: EOMI, PERRL ENT: Present: mucous membranes moist - *Routine Neck Exam Present: supple, full ROM, normal carotid upstroke. Absent: JVD, carotid bruit, lymphadenopathy - *Routine Respiratory Exam Present: decreased breath sounds, wheezes - *Routine Cardiovascular Exam Present: Normal S1, Normal S2, bradycardia, irregularly irregular. Absent: murmur - *Routine Abdominal Exam Present: soft, normoactive bowel sounds. Absent: tenderness - *Routine Extremities Exam Present: edema, full ROM (LLE), pulses intact (LLE). Absent: cyanosis, clubbing - *Routine Skin Exam Present: intact, warm. Absent: rash - *Routine Neurological Exam Present: alert, oriented X3, CN II-XII intact. Absent: sensory deficit, motor deficit - Detailed Eye Exam Eyelids: Left normal inspection Progress Note: A&P (1) Tachy-darren syndrome Status: Acute Current Visit: Yes (2) SSS (sick sinus syndrome) Status: Acute Current Visit: Yes (3) Paroxysmal atrial fibrillation Status: Chronic Current Visit: Yes (4) Pneumonia Status: Acute Current Visit: Yes (5) Acute on chronic diastolic (congestive) heart failure Status: Acute Current Visit: Yes (6) Shortness of breath Status: Acute Current Visit: Yes (7) Edema Status: Acute Current Visit: Yes (8) CAD (coronary artery disease) Status: Chronic Current Visit: No (9) HTN (hypertension) Status: Chronic Current Visit: No (10) HLD (hyperlipidemia) Status: Chronic Current Visit: No (11) Left bundle branch block Status: Chronic Current Visit: No (12) Obesity Status: Acute Current Visit: No (13) Above knee amputation of right lower extremity Status: Chronic Current Visit: No (14) Diabetes mellitus Status: Chronic Current Visit: No (15) PAD (peripheral artery disease) Status: Chronic Current Visit: No (16) Cardiomyopathy Status: Chronic Current Visit: Yes Assessment and Plan for All Diagnoses:: Plan: 1. Pt had another episode of afib with RVR over night. HR in 130s. Today pt remains in afib with a HR 55-62, with 2 second pauses. amio was stopped and metoprolol decreased yesterday due to 5 second pauses. unable to advance metoprolol or start anti-arrhythmics due to bradycardia and asystolic pauses and SSS and LBBB 2. recommend using IV metoprolol for episodes of RVR. 3. Will set the patient up for a PPM placement on Friday. She has an EF of 40%. will likely need a BiV PPM as we anticipate the patient to v-pace. 4. pt educated on the risks and benefits of BiV PPM placement. pt verbalized understanding and agreeable in proceeding with the procedure. 5. BP is well controlled. 6. PAD is stable. 7. CKD is stable. 8. further recommendations pending the patients response to treatment. thank you for the opportunity to help participate in the care of this patient.
--- NOTE | 2019-06-19 09:06 | Progress Note ---
Internal Medicine - PN: Subj *Date: 06/19/19 *Time: 09:04 Interval history: Patient has done marginally better over the past 24 hours with improved stability of heart rate. Had only a short run of A. fib with RVR. Denies any chest pain, worsening shortness of breath, fever, nausea or vomiting. Exam Vital signs and Labs for Last 24 Hours: Temp Pulse Resp BP Pulse Ox 97.9 F 70 19 171/69 H 97 06/19/19 04:00 06/19/19 08:00 06/19/19 06:00 06/19/19 06:00 06/19/19 06:21 Laboratory Results - last 24 hr 06/18/19 11:23: POC Glucose 192 H 06/18/19 16:24: POC Glucose 154 H 06/18/19 20:29: POC Glucose 169 H 06/19/19 06:12: POC Glucose 156 H I & O for Last 24 hours: Intake & Output 06/16/19 06/17/19 06/18/19 06/19/19 23:59 23:59 23:59 23:59 Intake Total 822 / 822 1310 / 1310 10 / 10 120 / 120 Output Total 200 / 200 750 / 750 600 / 600 600 / 600 Balance 622 / 622 560 / 560 -590 / -590 -480 / -480 Weight 96.672 kg 96.672 kg 98.43 kg 96.417 kg Microbiology Reports for the Last 24 Hours: Microbiology 06/13/19 15:03 Blood Blood Culture - Final NO GROWTH AFTER 5 DAYS 06/13/19 15:03 Blood Blood Culture - Final NO GROWTH AFTER 5 DAYS Narrative: Patient is pleasant and talkative. Alert, oriented x3. Pulse rate in the 60s-70s, blood pressure is slightly elevated this morning. Abdomen soft and nontender. No edema noted. Assessment and Plan (1) Tachy-darren syndrome Current visit: Yes Status: Acute Category: Medical Code(s): I49.5 - Sick sinus syndrome (2) SSS (sick sinus syndrome) Current visit: Yes Status: Acute Category: Medical Code(s): I49.5 - Sick sinus syndrome (3) Paroxysmal atrial fibrillation Current visit: Yes Status: Chronic Category: Medical Code(s): I48.0 - Paroxysmal atrial fibrillation (4) Pneumonia Current visit: Yes Status: Acute Category: Medical Code(s): J18.9 - Pneumonia, unspecified organism (5) Acute on chronic diastolic (congestive) heart failure Current visit: Yes Status: Acute Category: Medical Code(s): I50.33 - Acute on chronic diastolic (congestive) heart failure (6) Shortness of breath Current visit: Yes Status: Acute Category: Medical Code(s): R06.02 - Shortness of breath (7) Edema Current visit: Yes Status: Acute Category: Medical Code(s): R60.9 - Edema, unspecified (8) CAD (coronary artery disease) Current visit: No Status: Chronic Qualifiers: Coronary Disease-Associated Artery/Lesion type: [place] artery [place] vs. transplanted heart: [place] heart Associated angina: without angina Qualified Code(s): I25.10 - Atherosclerotic heart disease of [place] coronary artery without angina pectoris Category: Medical Code(s): I25.10 - Atherosclerotic heart disease of [place] coronary artery without angina pectoris (9) HTN (hypertension) Current visit: No Status: Chronic Qualifiers: Hypertension type: essential hypertension Qualified Code(s): I10 - Essential (primary) hypertension Category: Medical Code(s): I10 - Essential (primary) hypertension (10) HLD (hyperlipidemia) Current visit: No Status: Chronic Qualifiers: Hyperlipidemia type: mixed hyperlipidemia Qualified Code(s): E78.2 - Mixed hyperlipidemia Category: Medical Code(s): E78.5 - Hyperlipidemia, unspecified (11) Left bundle branch block Current visit: No Status: Chronic Category: Medical Code(s): I44.7 - Left bundle-branch block, unspecified (12) Obesity Current visit: No Status: Acute Qualifiers: Category: Medical Code(s): E66.9 - Obesity, unspecified (13) Above knee amputation of right lower extremity Current visit: No Status: Chronic Category: Surgical Code(s): Z89.611 - Acquired absence of right leg above knee (14) Diabetes mellitus Current visit: No Status: Chronic Qualifiers: Diabetes mellitus type: type 2 Diabetes mellitus terminal makeup operator insulin use: unspecified shelter insulin use status Diabetes mellitus complication status: with unspecified complications Category: Medical Code(s): E11.9 - Type 2 diabetes mellitus without complications (15) PAD (peripheral artery disease) Current visit: No Status: Chronic Category: Medical Code(s): I73.9 - Peripheral vascular disease, unspecified (16) Cardiomyopathy Current visit: Yes Status: Chronic Category: Medical Code(s): I42.9 - Cardiomyopathy, unspecified - Assessment and plan all Dx Assessment and Plan for all problems:: At this time we will continue beta-blockade. Monitor for any further episodes over the weekend. Planning for cardiology to assess patient on Friday for potential pacemaker placement. Continues to require inpatient management due to lability of heart rate
[2019-06-20 09:06] LABS: Basophils % 0.3 % (0.1-2.0); Eosinophils # 0.5 K/mm3 (0.0-0.4); Eosinophils % 3.1 % (0.1-12.0); Hematocrit 28.7 % (37.0-47.0); Lymphocytes # 1.9 K/mm3 (0.7-4.5); Lymphocytes % 12.5 % (10-50); Mean Corpuscular HGB Conc 31.3 g/dL (31.8-35.4); Mean Corpuscular Volume 85.4 fl (81-99); Mean Platelet Volume 8.8 fl (7.4-10.4); Monocytes # 0.7 K/mm3 (0.1-1.0); Monocytes % 4.7 % (1.7-9.3); Neutrophils # 12.1 K/mm3 (1.8-7.8); Neutrophils % 79.4 % (37.0-80.0); Platelet Count 248 K/mm3 (142-424); Red Blood Count 3.36 M/mm3 (4.20-5.40); Red Cell Distribution Width 15.2 % (11.5-17.5); White Blood Count 15.2 K/mm3 (4.8-10.8)
[2019-06-20 09:08] LABS: Anion Gap 12.8 mEq/L (5-15); Calcium 7.9 mg/dL (8.5-10.1)
[2019-06-20 09:46] LABS: Eosinophils % 5 % (0-3); Lymphocytes % 12 % (10-50); Monocytes % 5 % (2-9); Neutrophils % 73 % (42-76); Total Cells Counted 100
[2019-06-20 09:47] LABS: RBC Morphology Normal
--- NOTE | 2019-06-20 10:01 | Progress Note ---
Internal Medicine - PN: Subj *Date: 06/20/19 *Time: 09:56 Interval history: Ms. Echols did well overnight with good control of her heart rate on 75 mg twice daily of metoprolol. Blood pressure continues to be higher than desired however remains asymptomatic. Fluid status is remained stable. This morning continues to have some intermittent shortness of breath however denies chest pain, palpitations, confusion, nausea or vomiting. Given good control of heart rate on oral medications, discussed with patient possibly holding on pacemaker placement, she would prefer this if possible. Exam Vital signs and Labs for Last 24 Hours: Temp Pulse Resp BP Pulse Ox 98.3 F 75 19 177/74 H 98 06/20/19 07:41 06/20/19 07:41 06/20/19 07:41 06/20/19 07:41 06/20/19 08:00 Laboratory Results - last 24 hr 06/19/19 11:26: POC Glucose 196 H 06/19/19 16:29: POC Glucose 166 H 06/19/19 17:21: POC Glucose 154 H 06/19/19 21:22: POC Glucose 151 H 06/20/19 06:21: POC Glucose 153 H 06/20/19 08:54: WBC 15.2 H, RBC 3.36 L, Hgb 9.0 L, Hct 28.7 L, MCV 85.4, MCH 26.8 L, MCHC 31.3 L, RDW 15.2, Plt Count 248, MPV 8.8, Neut % (Auto) 79.4, Lymph % (Auto) 12.5, [place] % (Auto) 4.7, Eos % (Auto) 3.1, Baso % (Auto) 0.3, Neut # (Auto) 12.1 H, Lymph # (Auto) 1.9, [place] # (Auto) 0.7, Eos # (Auto) 0.5 H, Baso # (Auto) 0.0, Total Counted 100, Neutrophils % (Manual) 73, Lymphocytes % (Manual) 12, Atypical Lymphs % 5.0, Monocytes % (Manual) 5, Eosinophils % (Manual) 5 H, Platelet Estimate Normal, RBC Morphology Normal 06/20/19 08:54: Sodium 146 H, Potassium 2.8 L*, Chloride 107, Carbon Dioxide 29, Anion Gap 12.8, BUN 30 H, Creatinine 2.06 H, Estimated Creat Clear 40, Estimated GFR 24 L, Est GFR ( Amer) 29 L, Glucose 200 H, Calcium 7.9 L I & O for Last 24 hours: Intake & Output 06/17/19 06/18/19 06/19/19 06/20/19 23:59 23:59 23:59 23:59 Intake Total 1310 / 1310 10 / 10 600 / 600 240 / 240 Output Total 750 / 750 600 / 600 1100 / 1100 Balance 560 / 560 -590 / -590 -500 / -500 240 / 240 Weight 96.672 kg 98.43 kg 96.417 kg 97.976 kg Narrative: Patient is pleasant and talkative, no acute distress on nasal cannula oxygen, 2 L Alert, oriented x3, upper extremity strength 4/5 bilaterally Pulse rate in the 60s-70s, blood pressure is elevated this morning. Abdomen soft and nontender, normoactive bowel sounds No edema noted, Skin warm, clean, dry, and intact Assessment and Plan (1) Tachy-darren syndrome Current visit: Yes Status: Acute Category: Medical Code(s): I49.5 - Sick sinus syndrome (2) SSS (sick sinus syndrome) Current visit: Yes Status: Acute Category: Medical Code(s): I49.5 - Sick sinus syndrome (3) Paroxysmal atrial fibrillation Current visit: Yes Status: Chronic Category: Medical Code(s): I48.0 - Paroxysmal atrial fibrillation (4) Pneumonia Current visit: Yes Status: Acute Category: Medical Code(s): J18.9 - Pneumonia, unspecified organism (5) Acute on chronic diastolic (congestive) heart failure Current visit: Yes Status: Acute Category: Medical Code(s): I50.33 - Acute on chronic diastolic (congestive) heart failure (6) Shortness of breath Current visit: Yes Status: Acute Category: Medical Code(s): R06.02 - Shortness of breath (7) Edema Current visit: Yes Status: Acute Category: Medical Code(s): R60.9 - Edema, unspecified (8) CAD (coronary artery disease) Current visit: No Status: Chronic Qualifiers: Coronary Disease-Associated Artery/Lesion type: [place] artery [place] vs. transplanted heart: [place] heart Associated angina: without angina Qualified Code(s): I25.10 - Atherosclerotic heart disease of [place] coronary artery without angina pectoris Category: Medical Code(s): I25.10 - Atherosclerotic heart disease of [place] coronary artery without angina pectoris (9) HTN (hypertension) Current visit: No Status: Chronic Qualifiers: Hypertension type: essential hypertension Qualified Code(s): I10 - Essential (primary) hypertension Category: Medical Code(s): I10 - Essential (primary) hypertension (10) HLD (hyperlipidemia) Current visit: No Status: Chronic Qualifiers: Hyperlipidemia type: mixed hyperlipidemia Qualified Code(s): E78.2 - Mixed hyperlipidemia Category: Medical Code(s): E78.5 - Hyperlipidemia, unspecified (11) Left bundle branch block Current visit: No Status: Chronic Category: Medical Code(s): I44.7 - Left bundle-branch block, unspecified (12) Obesity Current visit: No Status: Acute Qualifiers: Category: Medical Code(s): E66.9 - Obesity, unspecified (13) Above knee amputation of right lower extremity Current visit: No Status: Chronic Category: Surgical Code(s): Z89.611 - Acquired absence of right leg above knee (14) Diabetes mellitus Current visit: No Status: Chronic Qualifiers: Diabetes mellitus type: type 2 Diabetes mellitus ferry terminal supervisor insulin use: unspecified nursing home insulin use status Diabetes mellitus complication status: with unspecified complications Category: Medical Code(s): E11.9 - Type 2 diabetes mellitus without complications (15) PAD (peripheral artery disease) Current visit: No Status: Chronic Category: Medical Code(s): I73.9 - Peripheral vascular disease, unspecified (16) Cardiomyopathy Current visit: Yes Status: Chronic Category: Medical Code(s): I42.9 - Cardiomyopathy, unspecified (17) Hypokalemia Current visit: Yes Status: Acute Category: Medical Code(s): E87.6 - Hypokalemia - Assessment and plan all Dx Assessment and Plan for all problems:: Ms. Echols is a 68-year-old female being treated for pneumonia, doing well overall. Found to have A. fib with RVR during admission. Has finally been able to capture heart rate control with 75 mg twice daily of metoprolol. Initially plan was to pursue pacemaker placement tomorrow however at this time given steady heart rate for more than 24 hours on consistent medication regimen, question the benefit at this time of pacer placement. If continues to remain stable, will reevaluate need for pacer in the morning and pursue transition to swing status at that time for continued therapy of upper extremities. Recommended getting to bedside chair. Of concern patient's potassium was low today. Will pursue aggressive repletion with both IV and oral per orders.
[2019-06-21 05:35] LABS: Basophils # 0.1 K/mm3 (0-0.2); Basophils % 0.3 % (0.1-2.0); Eosinophils # 0.5 K/mm3 (0.0-0.4); Eosinophils % 3.3 % (0.1-12.0); Lymphocytes # 2.2 K/mm3 (0.7-4.5); Lymphocytes % 14.9 % (10-50); Mean Corpuscular HGB Conc 31.4 g/dL (31.8-35.4); Mean Corpuscular Volume 84.8 fl (81-99); Mean Platelet Volume 8.6 fl (7.4-10.4); Monocytes # 0.7 K/mm3 (0.1-1.0); Monocytes % 4.5 % (1.7-9.3); Neutrophils # 11.2 K/mm3 (1.8-7.8); Neutrophils % 76.9 % (37.0-80.0); Platelet Count 222 K/mm3 (142-424); Red Blood Count 2.96 M/mm3 (4.20-5.40); Red Cell Distribution Width 15.5 % (11.5-17.5); White Blood Count 14.6 K/mm3 (4.8-10.8)
[2019-06-21 05:38] LABS: Hematocrit 25.1 % (37.0-47.0); Hemoglobin 7.9 g/dL (12.2-16.2)
[2019-06-21 05:42] LABS: Anion Gap 12.4 mEq/L (5-15); Calcium 7.8 mg/dL (8.5-10.1)
--- NOTE | 2019-06-21 08:09 | Progress Note ---
Subjective Date: 06/21/19 Time: 08:06 Principal diagnosis: SOB, pneumonia Interval history: 68 yo WM in bed in NAD. Telemetry shows NSR with BBB without A.fib. BP still elevated. No pauses overnight. Pt is on the schedule for BiV pacer today at 11. Exam Vital signs and Labs for Last 24 Hours: Temp Pulse Resp BP Pulse Ox 97.8 F 63 24 164/88 H 98 06/21/19 07:56 06/21/19 07:56 06/21/19 07:56 06/21/19 07:56 06/21/19 07:56 Laboratory Results - last 24 hr 06/20/19 08:54: WBC 15.2 H, RBC 3.36 L, Hgb 9.0 L, Hct 28.7 L, MCV 85.4, MCH 26.8 L, MCHC 31.3 L, RDW 15.2, Plt Count 248, MPV 8.8, Neut % (Auto) 79.4, Lymph % (Auto) 12.5, [place] % (Auto) 4.7, Eos % (Auto) 3.1, Baso % (Auto) 0.3, Neut # (Auto) 12.1 H, Lymph # (Auto) 1.9, [place] # (Auto) 0.7, Eos # (Auto) 0.5 H, Baso # (Auto) 0.0, Total Counted 100, Neutrophils % (Manual) 73, Lymphocytes % (Manual) 12, Atypical Lymphs % 5.0, Monocytes % (Manual) 5, Eosinophils % (Manual) 5 H, Platelet Estimate Normal, RBC Morphology Normal 06/20/19 08:54: Sodium 146 H, Potassium 2.8 L*, Chloride 107, Carbon Dioxide 29, Anion Gap 12.8, BUN 30 H, Creatinine 2.06 H, Estimated Creat Clear 40, Estimated GFR 24 L, Est GFR ( Amer) 29 L, Glucose 200 H, Calcium 7.9 L 06/20/19 11:07: POC Glucose 183 H 06/20/19 16:03: POC Glucose 174 H 06/20/19 21:44: POC Glucose 135 H 06/21/19 05:20: WBC 14.6 H, RBC 2.96 L, Hgb 7.9 L*, Hct 25.1 L, MCV 84.8, MCH 26.6 L, MCHC 31.4 L, RDW 15.5, Plt Count 222, MPV 8.6, Neut % (Auto) 76.9, Lymph % (Auto) 14.9, [place] % (Auto) 4.5, Eos % (Auto) 3.3, Baso % (Auto) 0.3, Neut # (Auto) 11.2 H, Lymph # (Auto) 2.2, [place] # (Auto) 0.7, Eos # (Auto) 0.5 H, Baso # (Auto) 0.1 06/21/19 05:20: Sodium 145, Potassium 3.4 L D, Chloride 107, Carbon Dioxide 29, Anion Gap 12.4, BUN 27 H, Creatinine 1.83 H, Estimated Creat Clear 44, Estimated GFR 27 L, Est GFR ( Amer) 33 L, Glucose 137 H D, Calcium 7.8 L 06/21/19 06:04: POC Glucose 145 H I & O for Last 24 hours: Intake & Output 06/18/19 06/19/19 06/20/19 06/21/19 11:59 11:59 11:59 11:59 Intake Total 840 / 840 120 / 120 808.333 / 808.333 800 / 800 Output Total 450 / 450 1200 / 1200 500 / 500 1000 / 1000 Balance 390 / 390 -1080 / -1080 308.333 / 308.333 -200 / -200 Weight 217 lb 212 lb 9 oz 216 lb 212 lb 2 oz - *Routine HEENT Exam Head: Present: normocephalic Eye: Present: EOMI, PERRL ENT: Present: mucous membranes moist - *Routine Respiratory Exam Present: CTA bilaterally. Absent: accessory muscle use, rales, rhonchi, wheezes - *Routine Cardiovascular Exam Present: RRR. Absent: murmur, gallop, rubs - *Routine Neurological Exam Present: alert, oriented X3, moving all extremities Progress Note: A&P (1) Tachy-darren syndrome Status: Acute Current Visit: Yes (2) SSS (sick sinus syndrome) Status: Acute Current Visit: Yes (3) Paroxysmal atrial fibrillation Status: Chronic Current Visit: Yes (4) Pneumonia Status: Acute Current Visit: Yes (5) Acute on chronic diastolic (congestive) heart failure Status: Acute Current Visit: Yes (6) Shortness of breath Status: Acute Current Visit: Yes (7) Edema Status: Acute Current Visit: Yes (8) CAD (coronary artery disease) Status: Chronic Current Visit: No (9) HTN (hypertension) Status: Chronic Current Visit: No (10) HLD (hyperlipidemia) Status: Chronic Current Visit: No (11) Left bundle branch block Status: Chronic Current Visit: No (12) Obesity Status: Acute Current Visit: No (13) Above knee amputation of right lower extremity Status: Chronic Current Visit: No (14) Diabetes mellitus Status: Chronic Current Visit: No (15) PAD (peripheral artery disease) Status: Chronic Current Visit: No (16) Cardiomyopathy Status: Chronic Current Visit: Yes (17) Hypokalemia Status: Acute Current Visit: Yes Assessment and Plan for All Diagnoses:: Plan for BiV pacer today due to Cardiomyopathy, recurrent A. fib with pauses on higher dose beta kaylan, and LBBB with anticipation that she will pace >40% of the time.
--- NOTE | 2019-06-21 08:43 | Progress Note ---
Internal Medicine - PN: Subj *Date: 06/21/19 *Time: 08:40 Interval history: Over the weekend patient improved, and her dysrhythmias improved on metoprolol however she remains somewhat bradycardic. Long discussion with cardiology about her situation, please see notes below. Patient continues to be weak and require maximal assistance moving from bed to chair. Exam Vital signs and Labs for Last 24 Hours: Temp Pulse Resp BP Pulse Ox 97.8 F 63 24 164/88 H 98 06/21/19 07:56 06/21/19 07:56 06/21/19 07:56 06/21/19 07:56 06/21/19 07:56 Laboratory Results - last 24 hr 06/20/19 08:54: WBC 15.2 H, RBC 3.36 L, Hgb 9.0 L, Hct 28.7 L, MCV 85.4, MCH 26.8 L, MCHC 31.3 L, RDW 15.2, Plt Count 248, MPV 8.8, Neut % (Auto) 79.4, Lymph % (Auto) 12.5, [place] % (Auto) 4.7, Eos % (Auto) 3.1, Baso % (Auto) 0.3, Neut # (Auto) 12.1 H, Lymph # (Auto) 1.9, [place] # (Auto) 0.7, Eos # (Auto) 0.5 H, Baso # (Auto) 0.0, Total Counted 100, Neutrophils % (Manual) 73, Lymphocytes % (Manual) 12, Atypical Lymphs % 5.0, Monocytes % (Manual) 5, Eosinophils % (Manual) 5 H, Platelet Estimate Normal, RBC Morphology Normal 06/20/19 08:54: Sodium 146 H, Potassium 2.8 L*, Chloride 107, Carbon Dioxide 29, Anion Gap 12.8, BUN 30 H, Creatinine 2.06 H, Estimated Creat Clear 40, Estimated GFR 24 L, Est GFR ( Amer) 29 L, Glucose 200 H, Calcium 7.9 L 06/20/19 11:07: POC Glucose 183 H 06/20/19 16:03: POC Glucose 174 H 06/20/19 21:44: POC Glucose 135 H 06/21/19 05:20: WBC 14.6 H, RBC 2.96 L, Hgb 7.9 L*, Hct 25.1 L, MCV 84.8, MCH 26.6 L, MCHC 31.4 L, RDW 15.5, Plt Count 222, MPV 8.6, Neut % (Auto) 76.9, Lymph % (Auto) 14.9, [place] % (Auto) 4.5, Eos % (Auto) 3.3, Baso % (Auto) 0.3, Neut # (A uto) 11.2 H, Lymph # (Auto) 2.2, [place] # (Auto) 0.7, Eos # (Auto) 0.5 H, Baso # (Auto) 0.1 06/21/19 05:20: Sodium 145, Potassium 3.4 L D, Chloride 107, Carbon Dioxide 29, Anion Gap 12.4, BUN 27 H, Creatinine 1.83 H, Estimated Creat Clear 44, Estimated GFR 27 L, Est GFR ( Amer) 33 L, Glucose 137 H D, Calcium 7.8 L 06/21/19 06:04: POC Glucose 145 H I & O for Last 24 hours: Intake & Output 06/18/19 06/19/19 06/20/19 06/21/19 11:59 11:59 11:59 11:59 Intake Total 840 / 840 120 / 120 808.333 / 808.333 800 / 800 Output Total 450 / 450 1200 / 1200 500 / 500 1000 / 1000 Balance 390 / 390 -1080 / -1080 308.333 / 308.333 -200 / -200 Weight 217 lb 212 lb 9 oz 216 lb 212 lb 2 oz Narrative: Patient is pleasant, awake. Oriented x3. Heart rate regular. Abdomen soft, lungs clear with good air movement, good perfusion. Assessment and Plan (1) Tachy-darren syndrome Current visit: Yes Status: Acute Category: Medical Code(s): I49.5 - Sick sinus syndrome (2) SSS (sick sinus syndrome) Current visit: Yes Status: Acute Category: Medical Code(s): I49.5 - Sick sinus syndrome (3) Paroxysmal atrial fibrillation Current visit: Yes Status: Chronic Category: Medical Code(s): I48.0 - Paroxysmal atrial fibrillation (4) Pneumonia Current visit: Yes Status: Acute Category: Medical Code(s): J18.9 - Pneumonia, unspecified organism (5) Acute on chronic diastolic (congestive) heart failure Current visit: Yes Status: Acute Category: Medical Code(s): I50.33 - Acute on chronic diastolic (congestive) heart failure (6) Shortness of breath Current visit: Yes Status: Acute Category: Medical Code(s): R06.02 - Shortness of breath (7) Edema Current visit: Yes Status: Acute Category: Medical Code(s): R60.9 - Edema, unspecified (8) CAD (coronary artery disease) Current visit: No Status: Chronic Qualifiers: Coronary Disease-Associated Artery/Lesion type: [place] artery [place] vs. transplanted heart: [place] heart Associated angina: without angina Qualified Code(s): I25.10 - Atherosclerotic heart disease of [place] coronary artery without angina pectoris Category: Medical Code(s): I25.10 - Atherosclerotic heart disease of [place] coronary artery without angina pectoris (9) HTN (hypertension) Current visit: No Status: Chronic Qualifiers: Hypertension type: essential hypertension Qualified Code(s): I10 - Essential (primary) hypertension Category: Medical Code(s): I10 - Essential (primary) hypertension (10) HLD (hyperlipidemia) Current visit: No Status: Chronic Qualifiers: Hyperlipidemia type: mixed hyperlipidemia Qualified Code(s): E78.2 - Mixed hyperlipidemia Category: Medical Code(s): E78.5 - Hyperlipidemia, unspecified (11) Left bundle branch block Current visit: No Status: Chronic Category: Medical Code(s): I44.7 - Left bundle-branch block, unspecified (12) Obesity Current visit: No Status: Acute Qualifiers: Category: Medical Code(s): E66.9 - Obesity, unspecified (13) Above knee amputation of right lower extremity Current visit: No Status: Chronic Category: Surgical Code(s): Z89.611 - Acquired absence of right leg above knee (14) Diabetes mellitus Current visit: No Status: Chronic Qualifiers: Diabetes mellitus type: type 2 Diabetes mellitus buttermaker continuous churn insulin use: unspecified fdc insulin use status Diabetes mellitus complication status: with unspecified complications Category: Medical Code(s): E11.9 - Type 2 diabetes mellitus without complications (15) PAD (peripheral artery disease) Current visit: No Status: Chronic Category: Medical Code(s): I73.9 - Peripheral vascular disease, unspecified (16) Cardiomyopathy Current visit: Yes Status: Chronic Category: Medical Code(s): I42.9 - Cardiomyopathy, unspecified (17) Hypokalemia Current visit: Yes Status: Acute Category: Medical Code(s): E87.6 - Hypokalemia - Assessment and plan all Dx Assessment and Plan for all problems:: Overall stable, but given her significant bradycardia arrhythmias she will require pacemaker. I think this should be done today. Continue beta-blockade. Plan will be to go ahead and transfuse given her significant weakness and low hemoglobin, we will give her 1 unit of blood before procedure at least. Continue PT evaluation and plan for possible swing bed versus discharge tomorrow if procedure goes well today.
[2019-06-22 06:22] LABS: Basophils % 0.3 % (0.1-2.0); Eosinophils # 0.5 K/mm3 (0.0-0.4); Eosinophils % 3.4 % (0.1-12.0); Hematocrit 29.9 % (37.0-47.0); Hemoglobin 9.2 g/dL (12.2-16.2); Lymphocytes # 2.2 K/mm3 (0.7-4.5); Lymphocytes % 15.9 % (10-50); Mean Corpuscular HGB Conc 30.9 g/dL (31.8-35.4); Mean Corpuscular Volume 87.7 fl (81-99); Mean Platelet Volume 9.1 fl (7.4-10.4); Monocytes # 0.7 K/mm3 (0.1-1.0); Monocytes % 4.9 % (1.7-9.3); Neutrophils # 10.7 K/mm3 (1.8-7.8); Neutrophils % 75.7 % (37.0-80.0); Platelet Count 204 K/mm3 (142-424); Red Blood Count 3.41 M/mm3 (4.20-5.40); Red Cell Distribution Width 16.1 % (11.5-17.5); White Blood Count 14.1 K/mm3 (4.8-10.8)
[2019-06-22 06:25] LABS: Anion Gap 11.8 mEq/L (5-15); Calcium 7.7 mg/dL (8.5-10.1)
--- NOTE | 2019-06-22 08:24 | Progress Note ---
Subjective Date: 06/22/19 Time: 08:10 Principal diagnosis: SOB, pneumonia Interval history: 68-year-old white female in bed in no acute distress. Biventricular pacemaker was not placed yesterday due to patient receiving blood. Patient is going down for biventricular pacemaker today. Exam Vital signs and Labs for Last 24 Hours: Temp Pulse Resp BP Pulse Ox 98.5 F 65 18 161/76 H 98 06/22/19 04:00 06/22/19 06:16 06/22/19 04:00 06/22/19 04:00 06/22/19 06:16 Laboratory Results - last 24 hr 06/21/19 08:50: Blood Type O Positive, Antibody Screen Negative, Crossmatch (AHG) See Detail 06/21/19 11:46: POC Glucose 137 H 06/21/19 16:46: POC Glucose 126 H 06/21/19 19:42: POC Glucose 145 H 06/22/19 05:22: POC Glucose 122 H 06/22/19 05:24: WBC 14.1 H, RBC 3.41 L, Hgb 9.2 L, Hct 29.9 L, MCV 87.7, MCH 27.1, MCHC 30.9 L, RDW 16.1, Plt Count 204, MPV 9.1, Neut % (Auto) 75.7, Lymph % (Auto) 15.9, [place] % (Auto) 4.9, Eos % (Auto) 3.4, Baso % (Auto) 0.3, Neut # (Auto) 10.7 H, Lymph # (Auto) 2.2, [place] # (Auto) 0.7, Eos # (Auto) 0.5 H, Baso # (Auto) 0.0 06/22/19 05:24: Sodium 144, Potassium 3.8, Chloride 108 H, Carbon Dioxide 28, Anion Gap 11.8, BUN 27 H, Creatinine 1.81 H, Estimated Creat Clear 44, Estimated GFR 28 L, Est GFR ( Amer) 34 L, Glucose 119 H, Calcium 7.7 L I & O for Last 24 hours: Intake & Output 06/19/19 06/20/19 06/21/19 06/22/19 11:59 11:59 11:59 11:59 Intake Total 120 / 120 808.333 / 215.679 6568 / 1040 620 / 620 Output Total 1200 / 1200 500 / 500 1300 / 1300 1350 / 1350 Balance -1080 / -1080 308.333 / 308.333 -260 / -260 -730 / -730 Weight 212 lb 9 oz 216 lb 212 lb 2 oz 210 lb 9 oz - *Routine HEENT Exam Head: Present: normocephalic Eye: Present: EOMI, PERRL ENT: Present: mucous membranes moist - *Routine Respiratory Exam Present: CTA bilaterally. Absent: accessory muscle use, rales, rhonchi, wheezes - *Routine Cardiovascular Exam Present: RRR. Absent: murmur, gallop, rubs - *Routine Neurological Exam Present: alert, oriented X3, moving all extremities Progress Note: A&P (1) Tachy-darren syndrome Status: Acute Current Visit: Yes (2) SSS (sick sinus syndrome) Status: Acute Current Visit: Yes (3) Paroxysmal atrial fibrillation Status: Chronic Current Visit: Yes (4) Pneumonia Status: Acute Current Visit: Yes (5) Acute on chronic diastolic (congestive) heart failure Status: Acute Current Visit: Yes (6) Shortness of breath Status: Acute Current Visit: Yes (7) Edema Status: Acute Current Visit: Yes (8) CAD (coronary artery disease) Status: Chronic Current Visit: No (9) HTN (hypertension) Status: Chronic Current Visit: No (10) HLD (hyperlipidemia) Status: Chronic Current Visit: No (11) Left bundle branch block Status: Chronic Current Visit: No (12) Obesity Status: Acute Current Visit: No (13) Above knee amputation of right lower extremity Status: Chronic Current Visit: No (14) Diabetes mellitus Status: Chronic Current Visit: No (15) PAD (peripheral artery disease) Status: Chronic Current Visit: No (16) Cardiomyopathy Status: Chronic Current Visit: Yes (17) Hypokalemia Status: Acute Current Visit: Yes Assessment and Plan for All Diagnoses:: 1. Biventricular pacemaker implantation today. 2. Anticipate increasing beta-kaylna therapy for blood pressure and heart rate control once pacemaker implanted. 3. Consider starting long-term anticoagulation therapy tomorrow due to recurrent atrial fibrillation. Stop lovenox today.
--- NOTE | 2019-06-22 11:15 | Progress Note ---
Internal Medicine - PN: Subj *Date: 06/22/19 *Time: 11:14 Exam Vital signs and Labs for Last 24 Hours: Temp Pulse Resp BP Pulse Ox 98.5 F 65 18 161/76 H 98 06/22/19 04:00 06/22/19 06:16 06/22/19 04:00 06/22/19 04:00 06/22/19 06:16 Laboratory Results - last 24 hr 06/21/19 08:50: Blood Type O Positive, Antibody Screen Negative, Crossmatch (AHG) See Detail 06/21/19 11:46: POC Glucose 137 H 06/21/19 16:46: POC Glucose 126 H 06/21/19 19:42: POC Glucose 145 H 06/22/19 05:22: POC Glucose 122 H 06/22/19 05:24: WBC 14.1 H, RBC 3.41 L, Hgb 9.2 L, Hct 29.9 L, MCV 87.7, MCH 27.1, MCHC 30.9 L, RDW 16.1, Plt Count 204, MPV 9.1, Neut % (Auto) 75.7, Lymph % (Auto) 15.9, [place] % (Auto) 4.9, Eos % (Auto) 3.4, Baso % (Auto) 0.3, Neut # (Auto) 10.7 H, Lymph # (Auto) 2.2, [place] # (Auto) 0.7, Eos # (Auto) 0.5 H, Baso # (Auto) 0.0 06/22/19 05:24: Sodium 144, Potassium 3.8, Chloride 108 H, Carbon Dioxide 28, Anion Gap 11.8, BUN 27 H, Creatinine 1.81 H, Estimated Creat Clear 44, Estimated GFR 28 L, Est GFR ( Amer) 34 L, Glucose 119 H, Calcium 7.7 L I & O for Last 24 hours: Intake & Output 06/19/19 06/20/19 06/21/19 06/22/19 23:59 23:59 23:59 23:59 Intake Total 600 / 600 1128.333 / 1128.333 850 / 850 10 / 10 Output Total 1100 / 1100 1000 / 1000 1050 / 1050 600 / 600 Balance -500 / -500 128.333 / 128.333 -200 / -200 -590 / -590 Weight 96.417 kg 97.976 kg 96.218 kg 95.51 kg Assessment and Plan (1) Tachy-darren syndrome Current visit: Yes Status: Acute Category: Medical Code(s): I49.5 - Sick sinus syndrome (2) SSS (sick sinus syndrome) Current visit: Yes Status: Acute Category: Medical Code(s): I49.5 - Sick sinus syndrome (3) Paroxysmal atrial fibrillation Current visit: Yes Status: Chronic Category: Medical Code(s): I48.0 - Paroxysmal atrial fibrillation (4) Pneumonia Current visit: Yes Status: Acute Category: Medical Code(s): J18.9 - Pneumonia, unspecified organism (5) Acute on chronic diastolic (congestive) heart failure Current visit: Yes Status: Acute Category: Medical Code(s): I50.33 - Acute on chronic diastolic (congestive) heart failure (6) Shortness of breath Current visit: Yes Status: Acute Category: Medical Code(s): R06.02 - Shortness of breath (7) Edema Current visit: Yes Status: Acute Category: Medical Code(s): R60.9 - Edema, unspecified (8) CAD (coronary artery disease) Current visit: No Status: Chronic Qualifiers: Coronary Disease-Associated Artery/Lesion type: [place] artery [facility] vs. transplanted heart: [place] heart Associated angina: without angina Qualified Code(s): I25.10 - Atherosclerotic heart disease of [place] coronary artery without angina pectoris Category: Medical Code(s): I25.10 - Atherosclerotic heart disease of [place] co ronary artery without angina pectoris (9) HTN (hypertension) Current visit: No Status: Chronic Qualifiers: Hypertension type: essential hypertension Qualified Code(s): I10 - Essential (primary) hypertension Category: Medical Code(s): I10 - Essential (primary) hypertension (10) HLD (hyperlipidemia) Current visit: No Status: Chronic Qualifiers: Hyperlipidemia type: mixed hyperlipidemia Qualified Code(s): E78.2 - Mixed hyperlipidemia Category: Medical Code(s): E78.5 - Hyperlipidemia, unspecified (11) Left bundle branch block Current visit: No Status: Chronic Category: Medical Code(s): I44.7 - Left bundle-branch block, unspecified (12) Obesity Current visit: No Status: Acute Qualifiers: Category: Medical Code(s): E66.9 - Obesity, unspecified (13) Above knee amputation of right lower extremity Current visit: No Status: Chronic Category: Surgical Code(s): Z89.611 - Acquired absence of right leg above knee (14) Diabetes mellitus Current visit: No Status: Chronic Qualifiers: Diabetes mellitus type: type 2 Diabetes mellitus nursing home insulin use: unspecified superintendent terminal insulin use status Diabetes mellitus complication status: with unspecified complications Category: Medical Code(s): E11.9 - Type 2 diabetes mellitus without complications (15) PAD (peripheral artery disease) Current visit: No Status: Chronic Category: Medical Code(s): I73.9 - Peripheral vascular disease, unspecified (16) Cardiomyopathy Current visit: Yes Status: Chronic Category: Medical Code(s): I42.9 - Cardiomyopathy, unspecified (17) Hypokalemia Current visit: Yes Status: Acute Category: Medical Code(s): E87.6 - Hypokalemia
[2019-06-22 15:27] LABS: Hematocrit 25.3 % (37.0-47.0)
--- NOTE | 2019-06-22 16:30 | Progress Note ---
Critical Care Event Note Code activated: No Narrative: This case had a high probability of a clinically significant, sudden, or life threatening deterioration of this patient's condition which required my full and direct attention, intervention and personal management. Called by nurse to bedside about 2:30 PM this afternoon due to hypotension with systolic pressure between 50 and 60 mmHg. Patient was immediately placed in Trendelenburg and IV fluids started wide open. Examination of the pacemaker area revealed some swelling with concern for bleeding. Stat H&H was drawn showing hemoglobin of 8. Stat chest x-ray showed no evidence of pneumomediastinum or pneumothorax and stat echo was ordered but unable to be performed due to inability to see the heart through the soft tissue/suspected blood. Patient's blood pressure did respond initially to IV fluids and with reversal of Trendelenburg, blood pressure was noted to decrease once again at which time Alvarez-Synephrine was started with orders to titrate to systolic pressure greater than 100 millimeters of mercury. Pressure dressing was removed with manual pressure applied consistently due to increasing swelling noted in the left breast area. With continued applied pressure swelling seem to improve and patient stabilized. Order was given for 2 units of blood to be transfused overnight with 40 mg of Lasix IV to be given after each unit transfused. Dr. Tao was kept up-to-date by phone and instructions received and enacted. It is not felt that taking the patient back to the [facility] would produce any benefit. I have instructed the nursing staff to continue to hold pressure around all 4 sides of the pacemaker for more than an hour. They will contact Dr. Tao if any problems arise. 2 mg of morphine given IV due to the discomfort of holding pressure and the hematoma of the left breast. Please note greater than 90 minutes spent in treatment. Critical care time: 75 - 104 mins [facility] Critical Care Exam Vital signs: Temp Pulse Resp BP Pulse Ox 98.5 F 70 18 166/73 H 97 06/22/19 04:00 06/22/19 13:30 06/22/19 13:30 06/22/19 13:30 06/22/19 13:30
[2019-06-22 19:10] LABS: ABG Base Excess -18.3 mmol/L (-2.4-2.3); ABG HCO3 10.7 mmhg (22.0-26.0); ABG Oxygen Saturation 99 % (90-100); ABG PCO2 32.1 mmhg (35.0-45.0); ABG PO2 430.3 mmhg (80-100); ABG TCO2 11.7 mmhg (23-27)
[2019-06-22 19:11] LABS: Allen's Test Y; Oxygen 95 %; PEEP 5; Tidal Volume 450
[2019-06-22 19:13] LABS: ABG PH 7.14 mmol/L (7.35-7.45)
--- NOTE | 2019-06-22 20:12 | Progress Note ---
Acute Rapid Response Note - Subjective Date Responded: 06/22/19 Provider Note: Responded to rapid response red from the emergency department. Nursing staff reports that the patient is on Alvarez-Synephrine, hypotensive after a pacemaker placed today. Hematoma of the left breast area, also blood transfusion in process. Blood pressure initially improved, but then again dropped, therefore rapid response called. Upon my arrival the patient is awake and states that she feels short of breath, but denies any pain. She is pale in appearance. Hypotensive. Cardiac rhythm is paced. Lung sounds are equal and clear although making some gurgling respiratory sounds with the pharynx. Dr. Davis arrived shortly after I arrived in the patient's room. The patient fairly quickly became unresponsive and pupils were very dilated. She was still breathing but ineffective, shallow breaths. She had fxa-kidfw-eosp ventilations started. Became pulseless and CPR was started. Intubated by me with a 7.5 endotracheal tube with good bilateral breath sounds. Multiple doses of epinephrine. Levophed was also started during the resuscitation. Bicarbonate was also given. Fluid bolus was continued. She remained in PEA for quite some time. Pericardiocentesis was also performed by Dr. Singh, who had also arrived on the scene. Dr. Singh and Dr. Davis and nursing staff were also in touch with Dr. Tao. Eventually regained a spontaneous perfusing rhythm with strong pulses. Blood pressure was difficult to obtain in the extremities due to edema. Eventually obtained a blood pressure in the left arm with doppler of 160 systolic. Patient was placed on a ventilator. Chest x-ray showed good position of the endotracheal tube. Endotracheal Intubation Performed by: JUAN ARTHUR Authorized by: JUAN ARTHUR Consent: The procedure was performed in an emergent situation. Indications: cardiac arrest Intubation method: direct Laryngoscope size: Kim 3 Tube size: 7.5 mm Tube type: cuffed Number of attempts: 1 Cords visualized: yes Post-procedure assessment: chest rise and CO2 detector. CO2 detector turned yellow and would not turn purple when bag compressed. Obviously detecting end- tidal CO2 but apparently the end-tidal CO2 level is so high that the detector will not turn back purple during the inspiratory phase. Tube position was rechecked also with the laryngoscope and is seen going through the cords. Breath sounds: equal and absent over the epigastrium Cuff inflated: yes ETT to teeth: 22 cm Tube secured with: ETT cerda - Objective Findings: Vital Signs - Last 4 Hours Temperature 97.4 F L 06/22/19 19:23 Temperature Source Axillary 06/22/19 19:23 Pulse Rate 80 06/22/19 16:00 Respiratory Rate 24 06/22/19 19:23 TAR Vitals Timing Pre-Blood Vitals 06/22/19 19:23 Blood Pressure 118/38 L 06/22/19 19:23 Blood Pressure Mean 64 06/22/19 19:23 Blood Pressure Source Automatic Cuff 06/22/19 14:00 Blood Pressure Position Sitting 06/22/19 14:00 02 Sat by Pulse Oximetry 98 06/22/19 19:23 Oxygen Delivery Method 06/22/19 18:00 Oxygen Flow Rate (LPM) 0 06/22/19 18:00 Lab Results for Past 12 Hours 06/22/19 19:09: Specimen Source R/r, O2 % 95, ABG pH 7.14 L*, ABG pCO2 32.1 L, ABG pO2 430.3 H, ABG HCO3 10.7 L, ABG Total CO2 11.7 L, ABG O2 Saturation 99, ABG Base Excess -18.3 L, Delon Test Y, Vent Rate 18, Tidal Volume 450, PEEP 5 06/22/19 15:21: Hgb 8.0 L, Hct 25.3 L 06/21/19 08:50: Blood Type O Positive, Antibody Screen Negative, Crossmatch (AHG) See Detail My Orders Category Date Time Status EPINEPHrine [EPINEPHrine 0.1mg/mL 10mL syringe] Med 06/22/19 19:00 Discontinued 1 mg IV Q3M Sodium Bicarbonate [Sodium Bicarbonate 8.4% 50mL Vial] Med 06/22/19 19:00 D iscontinued 50 meq IV ONCE ONE Rapid Response Exam - General General appearance: alert, in distress - Eye Eye exam: Present: other (Wide-eyed stare) - Neck Neck exam: Present: normal inspection, trachea midline - Chest Chest inspection: Present: other (Pacemaker left anterior chest. Ecchymosis around the left left breast with palpable hematoma.) - Respiratory Respiratory exam: Present: normal lung sounds bilaterally - Cardiovascular Cardiovascular exam: Present: regular rate, normal heart sounds - Abdominal Exam Abdominal exam: Present: soft - Extremities Exam Extremities exam: Present: other (Severe edema of upper extremities. Right leg amputation.) - Neurological Exam Neurological exam: Present: alert, other (Answers questions appropriately) - Skin Skin exam: Present: pallor
--- NOTE | 2019-06-23 11:34 | Procedure Note ---
[facility] D[facility]WASHER BUSSER-D - DISHWASHER BUSSER-D Date of Procedure:: 06/22/19 Procedures:: 1. Pocket formation for biventricular pacemaker generator with cardiac resynchronization/defibrillator therapy. 2. Placement atrial sensing and pacing lead into the right atrial appendage. 3. Placement of ventricular sensing pacing and shocking lead in the right ventricular apex. 4. Placement of left ventricular sensing pacing lead via the coronary sinus. 5. Permanent cardiac resynchronization therapy with ICD implantation/biv entricular pacemaker. Indication for test:: Systolic Congestive heart failure, ejection <35% Wide QRS > 120ms [place] [employer] Class 3 CHF Informed consent:: Obtained prior to procedure. Complications:: None EBL:: Less than 10 ml. Technique:: 1% lidocaine with epinephrine used to anesthetize the left anterior aspect of the chest. Scalpel was used to make the initial cutaneous incision while electrocautery was used to dissect down into the fascia. The fascia was lifted off the pectoralis muscle and digitally manipulated creating a pocket for the pacemaker. The patient was then placed in Trendelenburg position and subclavian vein was accessed via the Seldinger technique on 3 separate occasions. 3 wires were left into the subclavian vein. The right ventricular pacing shocking coil sheath was placed into the subclavian vein and under fluoroscopic guidance the right lingular sensing pacing shocking lead was placed into the right ventricular apex secured into place with the distal screw. After achieving excellent numbers the lead was then secured into placing using 3-0 silk. The lead was secured to the fascia also with heavy silk suture. Prior to the right ventricular lead being secured into place the sheath was peeled away from the subclavian vein. Under fluoroscopic guidance the coronary sinus was cannulated and confirmed with an injection of contrast. An 0.014 wire was then placed distally in the inferior posterior segment of the left ventricle via the coronary sinus and the left ventricular lead was advanced. After achieving excellent thresholds and interrogation numbers the sheath was then peeled away and the lead was then secured into place using silk suture. Following this, the left ventricular coil was secured in place using heavy silk and also secured to the fascia and additional 7 [place] sheath was then placed over the existing wire and an atrial sensing placing coil was placed in the right atrial appendage after achieving excellent thresholds the sheath was peeled away and the lead was secured to the fascia using heavy silk. After achieving, hemostasis, Ancef was used to flush the pocket and the 3 leads were attached to the DISHWASHER BUSSER-D generator. The generator was then secured into place by heavy silk suture. Monocryl was used to close the subcutaneous layers while kaden were used to close the subcutaneous layers while kaden were used to close the cutaneous layer. Pressure dressing placed and the patient was transferred to the postop holding area in stable condition. Impression:: 1. Successful pocket formation for biventricular pacemaker generator with cardiac resynchronization/defibrillator therapy. 2. Successful placement of right atrial sensing and pacing lead into the right atrial appendage. 3. Successful placement of a right ventricular sensing, pacing, and shocking lead in the right ventricular apex. 4. Successful placement of left ventricular sensing pacing lead into the coronary sinus. 5. Successful permanent cardiac resynchronization plus AICD generator device. Interrogation:: Generator Model number: Vigilant X4 G247 Generator Serial number: [id number] Atrial lead model number: INGEVITY MRI [id number] Atrial lead serial number: [id number] P-wave: 4.5 mV Impedence: 680 Ohms Threshold: 1.2V Left Ventricular lead model number: ACUITY [id number] Left Ventricular lead serial number: [id number] R-wave: 15.8 mV Impedence: 1100 Ohms Threshold: 3.5V Right Ventricular lead model number: RELIANCE [id number] Right Ventricular lead serial number: [id number] R-wave:8.0 mV Impedence: 600 Ohms Threshold: 1.0V Pacing Parameters: Mode: DDDR Base/Max Track: 60/120 ppm ICD Rate Cutoffs: VF: 220 bpm 41J x8 VT: 180 bpm 41J x6 No diaphragmatic stimulation at 10 volts. Plan:: 1.Post-op wound care.
--- NOTE | 2019-07-21 22:41 | Discharge Summary ---
General - General Admission date:: 06/13/19 Discharge date: 06/22/19 HPI HPI: 68-year-old white female with long history of diabetes-insulin requiring, history of osteomyelitis/leg cellulitis with right AKA, history of diastolic CHF, who came to the emergency department with chest pain, dyspnea and shortness of air. In the emergency department infiltrate noted on chest x-ray but very suspicious in character, CT scan confirmed that this appears to be a significant right upper lobe pneumonic infiltrate, and given her chest pain and shortness of air and possible CHF exacerbation when she was admitted to the hospital. This morning she states she feels somewhat better. Hospital Course Hospital Course: Ms. Echols was initially admitted for respiratory failure and right upper lobe pneumonia. Was initiated on broad-spectrum antibiotics, IV fluids, and monitored for clinical response. During admission she developed cardiac arrhythmias, with multiple episodes of atrial fibrillation, necessitating aggre ssive administration of antiarrhythmics including both calcium channel blockers and beta-blockers. She was initially given several IV doses of Cardizem and Cardizem drip with spontaneous conversion to sinus rhythm. Cardiology was consulted and recommended continuing beta-blockade. Of note she had had a negative heart cath the week prior and tolerated that procedure well. While on beta-blockade her heart would either go into A. fib or be bradycardic, making it very difficult to control her rhythm. She was determined to have sick sinus syndrome. Additionally, Over the initial couple of days she improved from a respiratory standpoint, her CHF was treated with higher doses of Lasix and she had a very brisk and full diuresis of about 3 L of fluid yesterday which resulted in very nicely improved pulmonary mechanics. Planned to transition her to Swing status for PT/OT prior to her recurrent arrythmia. Unfortunately due to her her heart rate being difficult to control on oral agents, cardiology recommended, she would benefit from placement of a pacemaker. Procedure was performed with no initial complication. After placement of pacemaker however the patient continued to have bleeding within the pocket in the left upper chest. The determination was made due to the nature of the bleeding that surgical intervention was not appropriate and pressure was held for an extensive period of time with no cessation of bleeding. The patient's condition which was already tenuous at baseline given her chronic comorbidities deteriorated leading to cardiac arrest while awaiting crossmatching of blood for transfusion. ACLS was performed with resumption of cardiac function (please see critical care note by Dr. Parson from 06/22/2019 for complete details). However, patient was in critical condition having been intubated, requiring chest compressions for greater than 20 minutes, requiring inotropic medications. Decision was made to transfer patient to a higher level of care at . She was accepted to their ICU for further management. Patient discharged/transferred to critically ill on continued ventilator and inotropic support. Objective Vital signs: Temp Pulse Resp BP Pulse Ox 98.4 F 101 H 32 H 106/47 L 100 06/22/19 21:25 06/22/19 21:35 06/22/19 20:50 06/22/19 21:35 06/22/19 21:35 severe distress, obese Comments: INtubated and obtunded - *Routine HEENT Exam Head: Present: atraumatic, cushingoid faces Eye: Present: PERRL ENT: Present: mucous membranes moist - *Routine Neck Exam Present: supple. Absent: JVD - Routine Chest/Breast/Axilla Exam Chest wall: Present: pacemaker Comments: Recently placed pacemaker left chest wall, large ecchymoses left upper chest covering majority of left breast - *Routine Respiratory Exam Present: patient mechanically ventilated. Absent: rhonchi, wheezes - *Routine Cardiovascular Exam Present: tachycardia. Absent: murmur - *Routine Abdominal Exam Present: soft. Absent: tenderness, distended Comments: hypoactive bowel sounds - *Routine Extremities Exam Present: edema, pallor, amputation (RLE AKA), vascular access (IO in left tibia). Absent: cyanosis, clubbing - *Routine Skin Exam Present: intact, dry, pallor, ecchymosis (Left upper chest). Absent: cyanosis, erythema - *Routine Neurological Exam Present: altered mental status obtunded, unresponsive to painful stimuli, pupils reactive but sluggish. 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 (14) Diabetes mellitus Status: Chronic (15) PAD (peripheral artery disease) Status: Chronic (16) Cardiomyopathy Status: Chronic (17) Hypokalemia Status: Acute (18) Cardiac arrest Status: Acute Discharge Plan - Patient Discharge Instructions ACTIVITY: Continue current activity, Other DIET: continue same diet Patient Instructions: Atrial Fibrillation, DI for Heart Failure, DI for Pneumonia -- Adult, DI for Atrial Fibrillation, Surgical Site Infection Forms: Transfer Record - Follow up Plan Follow up with: Ej Singh MD [Primary Care Provider] - Disposition: Xfer Short-Term Hosp Home Medications: Home Medications Medication Instructions Recorded Confirmed Type albuterol sulfate HFA 90 2 puff INHALATION Q6H PRN 04/13/18 06/13/19 History mcg/actuation aerosol inhaler isosorbide mononitrate ER 60 mg 60 mg PO BID 04/13/18 06/14/19 History tablet,extended release 24 hr levothyroxine 100 mcg tablet 100 mcg PO DAILY tab 04/13/18 06/13/19 History loratadine 10 mg tablet 10 mg PO DAILY tab 04/13/18 06/13/19 History metoclopramide 10 mg tablet 10 mg PO ACHS 04/13/18 06/14/19 History naproxen 500 mg tablet 500 mg PO BID 04/13/18 06/14/19 History nitroglycerin 0.4 mg sublingual 0.4 mg SUBLINGUAL Q5M PRN 04/13/18 06/13/19 History tablet pantoprazole 40 mg tablet,delayed 40 mg PO DAILY tab 04/13/18 06/13/19 History release tramadol 50 mg tablet 100 mg PO Q4HP PRN 04/13/18 06/14/19 History aspirin 81 mg tablet,delayed 81 mg PO DAILY 10/27/18 06/13/19 History release gabapentin 300 mg capsule 300 mg PO HS cap 10/27/18 06/14/19 History ibuprofen 200 mg tablet 400 mg PO HS tab 10/27/18 06/13/19 History multivitamin tablet 1 tab PO DAILY 10/27/18 06/13/19 History Amlodipine Besylate [Amlodipine 10 mg PO DAILY 06/13/19 06/13/19 History 10mg Tab] Lisinopril [Lisinopril 10mg Tab] 10 mg PO DAILY 06/13/19 06/13/19 History Atorvastatin Calcium [Atorvastatin 40 mg PO HS 06/14/19 06/14/19 History 40mg Tab] Insulin NPH Hum/Reg Insulin Hm 5 unit SQ DAILY 06/14/19 06/14/19 History [Humulin 70/30 Kwikpen] Insulin NPH Hum/Reg Insulin Hm 5 unit SQ HS 06/14/19 06/14/19 History [Humulin 70/30 Kwikpen] Linaclotide [Linzess] 145 mcg PO DAILY 06/14/19 06/14/19 History Cefdinir [Omnicef 300mg Capsule] 300 mg PO BID 7 Days #14 cap 06/15/19 Rx Hydralazine HCl [Hydralazine HCl 50 mg PO TID 30 Days #90 tab 06/15/19 Rx 25mg Tablet] Metoprolol Tartrate [Lopressor 50 mg PO BID 30 Days #60 tab 06/15/19 Rx 50mg tablet] hydroCHLOROthiazide [HCTZ 25mg 6.25 mg PO DAILY 30 Days #30 tab 06/15/19 Rx tab] Prescriptions/Medication Reconciliation: New Metoprolol Tartrate [Lopressor 50mg tablet] 50 mg PO BID 30 Days #60 tab Cefdinir [Omnicef 300mg Capsule] 300 mg PO BID 7 Days #14 cap Hydralazine HCl [Hydralazine HCl 25mg Tablet] 50 mg PO TID 30 Days #90 tab hydroCHLOROthiazide [HCTZ 25mg tab] 6.25 mg PO DAILY 30 Days #30 tab Continued loratadine 10 mg tablet 10 mg PO DAILY tab naproxen 500 mg tablet 500 mg PO BID nitroglycerin 0.4 mg sublingual tablet 0.4 mg SUBLINGUAL Q5M PRN PRN Reason: Chest Pain albuterol sulfate HFA 90 mcg/actuation aerosol inhaler 2 puff INHALATION Q6H PRN PRN Reason: copd pantoprazole 40 mg tablet,delayed release 40 mg PO DAILY tab metoclopramide 10 mg tablet 10 mg PO ACHS levothyroxine 100 mcg tablet 100 mcg PO DAILY tab tramadol 50 mg tablet 100 mg PO Q4HP PRN PRN Reason: PAIN gabapentin 300 mg capsule 300 mg PO HS cap aspirin 81 mg tablet,delayed release 81 mg PO DAILY ibuprofen 200 mg tablet 400 mg PO HS tab multivitamin tablet 1 tab PO DAILY isosorbide mononitrate ER 60 mg tablet,extended release 24 hr 60 mg PO BID Amlodipine Besylate [Amlodipine 10mg Tab] 10 mg PO DAILY Linaclotide [Linzess] 145 mcg PO DAILY Insulin NPH Hum/Reg Insulin Hm [Humulin 70/30 Kwikpen] 5 unit SQ HS Insulin NPH Hum/Reg Insulin Hm [Humulin 70/30 Kwikpen] 5 unit SQ DAILY Lisinopril [Lisinopril 10mg Tab] 10 mg PO DAILY Atorvastatin Calcium [Atorvastatin 40mg Tab] 40 mg PO HS Discontinued Bisoprolol Fumarate [Bisoprolol 10mg Tablet] 10 mg PO BID - Problem Reconciliation Problems Reviewed?: Yes
== END 2019-06-22 22:04 | disposition short-term general hospital (02) | DRG 242 ==
LOC: ER 11:20 → 2ND 15:22
PROVIDERS: ADMIT Family Medicine; ATTEND Internal Medicine Adolescent Medicine
CPT/HCPCS: 36415; 71010; 71045; 71250; 80048; 80053; 81001; 82803; 82962; 83605; 83735; 83880; 84100; 84484; 85007; 85014; 85018; 85025; 86850; 87040; 87086; 93005; 93306; 94640; 94760; 94761; 96374; 96375; 97110; 97163; 97530; 99152; 99285; C1725; C1769; C1882; C1895; C1898; C1900; J0282; J0456; J1644; J2310; J7060; P9016; Q9967